=== PATIENT | male | born 1960 | race Caucasian/White ===

== ENCOUNTER → 2019-03-04 08:29 | Outpatient (BNVA) | payer MEDICARE, SELFPAY | PROVIDERS: Family Provider Family Medicine; PCP Family Medicine; Visit Provider Anesthesiology | DX: M54.9 Dorsalgia, unspecified (principal); M54.2 Cervicalgia; F17.210 Nicotine dependence, cigarettes, uncomplicated; Z79.891 Long term (current) use of opiate analgesic | CPT/HCPCS: 99214 ==

== ENCOUNTER → 2019-04-23 13:16 | Outpatient (BNVA) | payer MEDICARE, SELFPAY | PROVIDERS: Family Provider Family Medicine; PCP Family Medicine; Visit Provider Anesthesiology | DX: M54.2 Cervicalgia (principal); M54.9 Dorsalgia, unspecified; M54.16 Radiculopathy, lumbar region; S68.119A Complete traumatic metacarpophalangeal amputation of unspecified finger, initial encounter; X58.XXXA Exposure to other specified factors, initial encounter; Z72.0 Tobacco use; Z79.891 Long term (current) use of opiate analgesic | CPT/HCPCS: 99214 ==

== ENCOUNTER → 2019-09-02 10:12 | Outpatient (BNVA) | payer MEDICARE, SELFPAY | PROVIDERS: Family Provider Family Medicine; PCP Family Medicine; Visit Provider Nurse Practitioner | DX: M54.42 Lumbago with sciatica, left side (principal); M54.41 Lumbago with sciatica, right side; M54.9 Dorsalgia, unspecified; M54.2 Cervicalgia; F17.210 Nicotine dependence, cigarettes, uncomplicated; Z79.891 Long term (current) use of opiate analgesic; Z71.6 Tobacco abuse counseling | CPT/HCPCS: 99213; 99214 ==

== ENCOUNTER → 2019-10-29 11:02 | Outpatient (BNVA) | payer MEDICARE, SELFPAY | PROVIDERS: Family Provider Family Medicine; PCP Family Medicine; Visit Provider Anesthesiology | DX: M54.16 Radiculopathy, lumbar region (principal); M54.9 Dorsalgia, unspecified; M54.2 Cervicalgia; F17.210 Nicotine dependence, cigarettes, uncomplicated; Z79.891 Long term (current) use of opiate analgesic | CPT/HCPCS: 99214 ==

== ENCOUNTER → 2019-12-07 15:21 | Outpatient (BNVA) | payer MEDICARE, SELFPAY | PROVIDERS: Family Provider Family Medicine; PCP Family Medicine; Visit Provider Nurse Practitioner Family | DX: R30.0 Dysuria (principal); N30.00 Acute cystitis without hematuria | CPT/HCPCS: 80053; 81000; 87077; 87086; 87184 ==

== ENCOUNTER → 2019-12-31 09:45 | Outpatient (BNVA) | payer MEDICARE, SELFPAY | PROVIDERS: Family Provider Family Medicine; PCP Family Medicine; Visit Provider Anesthesiology | DX: M54.2 Cervicalgia (principal); M54.16 Radiculopathy, lumbar region; M54.9 Dorsalgia, unspecified; F17.210 Nicotine dependence, cigarettes, uncomplicated; Z79.891 Long term (current) use of opiate analgesic | CPT/HCPCS: 99213; 99214 ==

== ENCOUNTER → 2020-01-16 16:25 | Outpatient (BNVA) | payer MEDICARE, SELFPAY | PROVIDERS: Family Provider Family Medicine; PCP Family Medicine; Visit Provider Nurse Practitioner Family | DX: R30.0 Dysuria (principal); M54.9 Dorsalgia, unspecified; R39.9 Unspecified symptoms and signs involving the genitourinary system | CPT/HCPCS: 81000 ==

== ENCOUNTER → 2020-02-27 10:05 | Outpatient (BNVA) | payer MEDICARE, SELFPAY | PROVIDERS: Family Provider Family Medicine; PCP Family Medicine; Visit Provider Nurse Practitioner | DX: M54.16 Radiculopathy, lumbar region (principal); M54.9 Dorsalgia, unspecified; M54.2 Cervicalgia; F17.210 Nicotine dependence, cigarettes, uncomplicated; Z79.891 Long term (current) use of opiate analgesic; Z71.6 Tobacco abuse counseling | CPT/HCPCS: 99214 ==

== ENCOUNTER → 2020-05-04 09:01 | Outpatient (BNVA) | payer MEDICARE, SELFPAY | PROVIDERS: Family Provider Family Medicine; PCP Family Medicine; Visit Provider Anesthesiology | DX: M54.2 Cervicalgia (principal); M54.9 Dorsalgia, unspecified; M54.16 Radiculopathy, lumbar region; F17.200 Nicotine dependence, unspecified, uncomplicated; Z79.891 Long term (current) use of opiate analgesic | CPT/HCPCS: 99213 ==

== ENCOUNTER → 2020-07-06 09:50 | Outpatient (BNVA) | payer MEDICARE, SELFPAY | PROVIDERS: Family Provider Family Medicine; PCP Family Medicine; Referring Provider Family Medicine; Visit Provider Nurse Practitioner Family | DX: N39.0 Urinary tract infection, site not specified (principal); N31.9 Neuromuscular dysfunction of bladder, unspecified | CPT/HCPCS: 81003; 87086 ==

== ENCOUNTER → 2020-07-07 08:53 | Outpatient (BNVA) | payer MEDICARE, SELFPAY | PROVIDERS: Family Provider Family Medicine; PCP Family Medicine; Visit Provider Anesthesiology | DX: G89.29 Other chronic pain (principal); M54.2 Cervicalgia; M54.16 Radiculopathy, lumbar region; M54.9 Dorsalgia, unspecified; F17.210 Nicotine dependence, cigarettes, uncomplicated; Z79.891 Long term (current) use of opiate analgesic | CPT/HCPCS: 99214 ==

== ENCOUNTER → 2020-08-18 09:02 | Outpatient (BNVA) | payer MEDICARE, SELFPAY | PROVIDERS: Family Provider Family Medicine; PCP Family Medicine; Visit Provider Urology | DX: Z12.5 Encounter for screening for malignant neoplasm of prostate (principal); N39.0 Urinary tract infection, site not specified; N31.9 Neuromuscular dysfunction of bladder, unspecified; R32 Unspecified urinary incontinence | CPT/HCPCS: 81003; G0103 ==

== ENCOUNTER → 2020-08-31 08:37 | Outpatient (BNVA) | payer MEDICARE, SELFPAY | PROVIDERS: Family Provider Family Medicine; PCP Family Medicine; Visit Provider Anesthesiology | DX: M54.16 Radiculopathy, lumbar region (principal); M54.2 Cervicalgia; M54.9 Dorsalgia, unspecified; F17.210 Nicotine dependence, cigarettes, uncomplicated; Z79.891 Long term (current) use of opiate analgesic | CPT/HCPCS: 99214 ==

== ENCOUNTER 2020-09-29 10:11 | Outpatient (CLI) | payer MEDICARE, SELFPAY ==
--- NOTE | 2020-09-29 09:45 | XR_ITS ---
WS: [id number] KUB, AP view, 09/29/2020 Clinical Data: RECURRENT UTI Comparison: None. Findings: No abnormal intraabdominal masses or calcifications are seen. There is no dilatated small bowel or ev idence of obstruction. There are phleboliths in the true pelvis. The bladder is full. There is a large amount of fecal mater ial in colon gas obscuring detail over both kidneys. There is irregularity of the left lateral ilium which may be secondary to an injury or a bone graft donor site. XR/XR KUB [id number] Impression: Negative KUB.
== END 2020-09-29 10:12 | disposition home or self-care (01) ==
LOC: RAD 10:15
PROVIDERS: PCP Family Medicine; Visit Provider Urology
DX: N39.0 Urinary tract infection, site not specified (principal)
CPT/HCPCS: 74018; 81003

== ENCOUNTER → 2020-11-10 08:58 | Outpatient (BNVA) | payer MEDICARE, SELFPAY | PROVIDERS: PCP Family Medicine; Visit Provider Nurse Practitioner | DX: M54.16 Radiculopathy, lumbar region (principal); M54.2 Cervicalgia; F17.210 Nicotine dependence, cigarettes, uncomplicated; Z79.891 Long term (current) use of opiate analgesic; Z71.6 Tobacco abuse counseling | CPT/HCPCS: 99214 ==

== ENCOUNTER → 2021-01-05 10:15 | Outpatient (BNVA) | payer MEDICARE, SELFPAY | PROVIDERS: PCP Family Medicine; Visit Provider Anesthesiology | DX: M54.16 Radiculopathy, lumbar region (principal); M54.2 Cervicalgia; F17.200 Nicotine dependence, unspecified, uncomplicated; Z79.891 Long term (current) use of opiate analgesic; Z71.6 Tobacco abuse counseling | CPT/HCPCS: 99214 ==

== ENCOUNTER → 2021-02-10 17:10 | Outpatient (BNVA) | payer MEDICARE, SELFPAY | PROVIDERS: PCP Family Medicine; Visit Provider Emergency Medicine | DX: R39.9 Unspecified symptoms and signs involving the genitourinary system (principal); N39.0 Urinary tract infection, site not specified; R31.9 Hematuria, unspecified | CPT/HCPCS: 81000; 87086 ==

== ENCOUNTER → 2021-03-08 09:58 | Outpatient (BNVA) | payer MEDICARE, SELFPAY | PROVIDERS: PCP Family Medicine; Visit Provider Anesthesiology | DX: G89.29 Other chronic pain (principal); M54.16 Radiculopathy, lumbar region; M54.2 Cervicalgia; F17.200 Nicotine dependence, unspecified, uncomplicated; Z79.891 Long term (current) use of opiate analgesic | CPT/HCPCS: 99214 ==

== ENCOUNTER → 2022-04-21 13:56 | Outpatient (BNVA) | payer MEDICARE, SELFPAY | PROVIDERS: PCP Family Medicine; Visit Provider Thoracic Surgery (Cardiothoracic Vascular Surgery) | DX: T81.31XD Disruption of external operation (surgical) wound, not elsewhere classified, subsequent encounter (principal); Y83.8 Other surgical procedures as the cause of abnormal reaction of the patient, or of later complication, without mention of misadventure at the time of the procedure; I96 Gangrene, not elsewhere classified | CPT/HCPCS: 11042; 99213; A6021 ==

== ENCOUNTER → 2022-04-28 14:08 | Outpatient (BNVA) | payer MEDICARE, SELFPAY | PROVIDERS: PCP Family Medicine; Visit Provider Thoracic Surgery (Cardiothoracic Vascular Surgery) | DX: T81.31XA Disruption of external operation (surgical) wound, not elsewhere classified, initial encounter (principal); Y83.8 Other surgical procedures as the cause of abnormal reaction of the patient, or of later complication, without mention of misadventure at the time of the procedure | CPT/HCPCS: 97597 ==

== ENCOUNTER 2022-05-03 06:00 | Outpatient (RCR) | payer MEDICARE, SELFPAY | END 2022-05-19 23:59 | disposition home or self-care (01) | LOC: MPT 06:00 | PROVIDERS: Visit Provider Family Medicine | DX: S34.13 Other and unspecified injury to sacral spinal cord (principal); X58.XXXD Exposure to other specified factors, subsequent encounter | CPT/HCPCS: 97110; 97162 ==

== ENCOUNTER → 2022-05-05 15:09 | Outpatient (BNVA) | payer MEDICARE, SELFPAY | PROVIDERS: Visit Provider Nurse Practitioner Family | DX: I96 Gangrene, not elsewhere classified (principal); L89.610 Pressure ulcer of right heel, unstageable; Z09 Encounter for follow-up examination after completed treatment for conditions other than malignant neoplasm | CPT/HCPCS: 99212 ==

== ENCOUNTER → 2022-05-12 16:46 | Outpatient (BNVA) | payer MEDICARE, SELFPAY | PROVIDERS: Visit Provider Nurse Practitioner Family | DX: Z09 Encounter for follow-up examination after completed treatment for conditions other than malignant neoplasm (principal) | CPT/HCPCS: 99212 ==

== ENCOUNTER 2022-05-18 06:00 | Outpatient (RCR) | payer MEDICARE, SELFPAY | END 2022-05-19 23:59 | disposition home or self-care (01) | LOC: SOT 06:00 | PROVIDERS: Visit Provider Family Medicine | DX: S34.13 Other and unspecified injury to sacral spinal cord (principal); X58.XXXS Exposure to other specified factors, sequela | CPT/HCPCS: 97167; 97530 ==

== ENCOUNTER 2022-05-20 06:00 | Outpatient (RCR) | payer MEDICARE, SELFPAY | END 2022-06-18 23:59 | disposition home or self-care (01) | LOC: MPT 06:00 | PROVIDERS: Visit Provider Family Medicine | DX: M62.81 Muscle weakness (generalized) (principal) | CPT/HCPCS: 97110; 97530 ==

== ENCOUNTER 2022-06-19 06:00 | Outpatient (RCR) | payer MEDICARE, SELFPAY | END 2022-07-19 23:59 | disposition home or self-care (01) | LOC: MPT 06:00 | PROVIDERS: Visit Provider Family Medicine | DX: R53.1 Weakness (principal) | CPT/HCPCS: 97110; 97530 ==

== ENCOUNTER 2022-07-20 06:00 | Outpatient (RCR) | payer MEDICARE, SELFPAY | END 2022-08-18 23:59 | disposition home or self-care (01) | LOC: MPT 06:00 | PROVIDERS: Visit Provider Family Medicine | DX: M62.81 Muscle weakness (generalized) (principal) | CPT/HCPCS: 97110; 97530 ==

== ENCOUNTER 2022-08-28 06:00 | Outpatient (RCR) | payer MEDICARE, SELFPAY | END 2022-09-18 23:59 | disposition home or self-care (01) | LOC: MOT 06:00 | PROVIDERS: Visit Provider Family Medicine | DX: S34.13 Other and unspecified injury to sacral spinal cord (principal); X58.XXXS Exposure to other specified factors, sequela | CPT/HCPCS: 97110; 97112; 97140; 97166 ==

== ENCOUNTER 2022-09-01 10:31 | Outpatient (RCR) | payer MEDICARE, SELFPAY | END 2022-09-18 23:59 | disposition home or self-care (01) | LOC: MPT 10:31 | PROVIDERS: Visit Provider Family Medicine | DX: M62.81 Muscle weakness (generalized) (principal) | CPT/HCPCS: 97110; 97530 ==

== ENCOUNTER 2022-09-19 06:00 | Outpatient (RCR) | payer MEDICARE, SELFPAY | END 2022-10-19 23:59 | disposition home or self-care (01) | LOC: MPT 06:00 | PROVIDERS: Visit Provider Family Medicine | DX: M62.81 Muscle weakness (generalized) (principal) | CPT/HCPCS: 97110; 97530 ==

== ENCOUNTER 2022-09-19 06:00 | Outpatient (RCR) | payer MEDICARE, SELFPAY | END 2022-10-19 23:59 | disposition home or self-care (01) | LOC: MOT 06:00 | PROVIDERS: Visit Provider Family Medicine | DX: S34.13 Other and unspecified injury to sacral spinal cord (principal); X58.XXXS Exposure to other specified factors, sequela | CPT/HCPCS: 97110; 97112; 97140 ==

== ENCOUNTER 2022-10-20 06:00 | Outpatient (RCR) | payer MEDICARE, SELFPAY | END 2022-11-18 23:59 | disposition home or self-care (01) | LOC: MOT 06:00 | PROVIDERS: Visit Provider Family Medicine | DX: S34.13 Other and unspecified injury to sacral spinal cord (principal); X58.XXXD Exposure to other specified factors, subsequent encounter | CPT/HCPCS: 97110; 97112; 97140 ==

== ENCOUNTER 2022-10-20 06:00 | Outpatient (RCR) | payer MEDICARE, SELFPAY | END 2022-11-18 23:59 | disposition home or self-care (01) | LOC: MPT 06:00 | PROVIDERS: Visit Provider Family Medicine | DX: M62.81 Muscle weakness (generalized) (principal) | CPT/HCPCS: 97110 ==

== ENCOUNTER 2022-11-19 06:00 | Outpatient (RCR) | payer MEDICARE, SELFPAY | END 2022-12-19 23:59 | disposition home or self-care (01) | LOC: MOT 06:00 | PROVIDERS: Visit Provider Family Medicine | DX: S34.13 Other and unspecified injury to sacral spinal cord (principal); V89.2XXS Person injured in unspecified motor-vehicle accident, traffic, sequela | CPT/HCPCS: 97110; 97112 ==

== ENCOUNTER 2022-11-19 06:00 | Outpatient (RCR) | payer MEDICARE, SELFPAY | END 2022-12-19 23:59 | disposition home or self-care (01) | LOC: MPT 06:00 | PROVIDERS: Visit Provider Family Medicine | DX: S34.13 Other and unspecified injury to sacral spinal cord (principal); X58.XXXD Exposure to other specified factors, subsequent encounter | CPT/HCPCS: 97110 ==

== ENCOUNTER 2022-12-19 12:31 | Emergency (ER) | payer MEDICARE, SELFPAY ==
[2022-12-19 12:56] VITALS: BP 131/80; PULSE 73; RESP 18; TEMP 36.8; O2SAT 94
--- NOTE | 2022-12-19 13:34 | CT_ITS ---
WS: [id number] CT HEAD TECHNIQUE: Noncontrast CT of the head obtained from the skullbase to the vertex. CLINICAL INFORMATION: loss of vision COMPARISON: CT 2018 DLP: 1119.[address] scans at [facility] use at least one of these dose optimization techniques: automated e xposure control; mA and/or kV adjustment per patient size (includes targeted exams where dose is matc hed to clinical indication); or iterative reconstruction. FINDINGS: No evidence of intracranial hemorrhage or mass effect. Ventricular system and basal cisterns are mayer nt. Mild small vessel changes with mild parenchymal volume loss. No extra-axial fluid collections. No evidence of mass or mass effect. Intracranial vascular calcification. Tiny chronic lacunar infarct L EFT thalamus. Paranasal sinuses and mastoid air cells are well aerated. .Normal visualized soft tissues. IMPRESSION: 1. No evidence of intracranial hemorrhage or mass effect. 2. No acute intracranial findings.
[2022-12-19 13:45] LABS: Basophils # 0.1 10^3/uL (0.0-0.1); Basophils % 0.8 %; Eosinophils # 0.4 10^3/uL (0.0-0.8); Eosinophils % 5.6 %; Hematocrit 45.8 % (37-53); Lymphocytes # 1.5 10^3/uL (0.8-4.8); Lymphocytes % 20.2 %; Mean Corpuscular HGB Conc 31.2 g/dL (30-55); Mean Corpuscular Hemoglobin 27.7 pg (27-33); Mean Corpuscular Volume 88.6 fl (82-101); Mean Platelet Volume 10.9 fL (7.4-10.4); Monocytes # 0.5 10^3/uL (0.2-0.9); Monocytes % 7.2 %; Neutrophils # 4.75 10^3/uL (1.8-7.7); Neutrophils % 64.6 %; Nucleated Red Blood Cells % 0 %; Platelet Count 210 10^3/cmm (157-399); Red Blood Count 5.17 10^6/uL (3.85-5.65); Red Cell Distribution Width 13.5 % (12.1-15.1); White Blood Count 7.36 10^3/uL (3.29-11.43)
[2022-12-19 13:56] LABS: Erythrocyte Sedimentation Rate 30 mm/hr (0-10)
[2022-12-19 14:15] LABS: Alanine Aminotransferase 11 U/L (0-41); Albumin Level 3.5 g/dL (3.5-5.2); Alkaline Phosphatase 79 U/L (40-130); Anion Gap 11.4 (5-19); Aspartate Amino Transferase 11 U/L (0-40); Blood Urea Nitrogen 12 mg/dL (8-23); Calcium 9.5 mg/dL (8.5-10.5); Carbon Dioxide 29 mmol/L (22-29); Chloride 105 mmol/L (98-107); Globulin 3.1 g/dL (1.3-4.6); Glomerular Filtration Rate 75.5 mL/min (90-130); Glucose 99 mg/dL (65-115); Osmolality Calculated 292 mOsm/kg (285-295); Potassium 4.4 mmol/L (3.5-5.1); Sodium 141 mmol/L (136-145); Total Bilirubin 0.2 mg/dL (0.15-1.2); Total Protein 6.6 g/dL (6.6-8.7)
--- NOTE | 2022-12-19 15:14 | ED_ITS ---
HPI - General Adult General: Chief complaint: General Medical Stated complaint: vision problems Time Seen by Provider: 12/19/22 13:33 Source: patient Mode of arrival: ambulatory History of Present Illness: 59-year-old male presents emergency room complaining of bilateral vision loss. He states his vision has been foggy and difficult he has had it intermittently for several months for the last 3 days has been more severe to the point where is difficult time walking or managing daily activities of living. He has not had any fever sweats chills no trauma to the eyes no foreign body sensation no redness erythema or swelling to the eyes that they have noticed. No direct trauma or blow has not had an associated headache nausea vomiting dizziness no seizures. In September he seen an internal investigator had a dilated eye exam and his eyes were relatively fine after that but he intermittently would have difficulty with focusing. Last 3 days it has been much more intense and persistent Onset (ago): hour(s) Location: head Relieving factors: none Exacerbating factors: none Associated symptoms: Deny chest pain, confusion, cough, diaphoresis, decreased appetite, dyspnea, fevers/chills, headache(s), malaise, nausea, rash, palpitations, seizures, short of breath, syncope, vomiting or weakness Review of Systems Const: Denies: malaise or diaphoresis Card: Denies: chest pain, palpitations or syncope Resp: Denies: dyspnea GI: Denies: nausea or vomiting : Denies: dysuria, urinary frequency or urinary urgency Musc: Denies: neck pain or back pain Skin/Breast: Denies: rash Neuro: Denies: headache(s) or confusion PFS ED PFSH: Medical History Asthma Back Pain Cervical spine pain Encounter for long-term use of opiate analgesic Fingertip amputation High blood pressure Lumbar radiculitis Neurogenic bladder Opioid contract exists Recurrent UTI Smoker Urinary incontinence Surgical History H/O spinal fusion Family History Mother Dementia Father Cancer Other Hypertension Social History Alcohol intake: never Substance/Drug Use: never Marital status: Current occupational status: disabled Physical Exam Const: GENERAL APPEARANCE: cooperative and comfortable ORIENTATION/CONSCIOUSNESS: Yes awake, Yes oriented to person, Yes oriented to place and Yes oriented to time HENMT: COMMON NORMALS: normocephalic, atraumatic and hearing grossly normal bilaterally HEAD & SCALP: normocephalic and atraumatic Resp: COMMON NORMALS: normal respiratory effort, No retractions, No use of accessory muscles and clear to auscultation bilaterally AUSCULTATION: clear to auscultation bilaterally Cardio: COMMON NORMALS: regular rate, regular rhythm and No murmurs present (Cardio) RATE: regular rate RHYTHM: regular rhythm GI: COMMON NORMALS: Soft to palpation and No hepatosplenomegaly present AUSCULTATION: Yes normoactive bowel sounds PALPATION: Yes Soft to palpation, No Tenderness to palpation present (GI), No Guarding due to palpation present (GI) and Yes No hepatosplenomegaly present Extremity: COMMON NORMALS: normal to inspection, capillary refill normal, no clubbing, cyanosis or edema, no calf tenderness and no pedal edema Neuro: SENSORIUM/ORIENTATION: Yes oriented to person, Yes oriented to place and Yes oriented to time Skin: COMMON NORMALS: no rashes or lesions noted GENERAL SKIN EXAM: no rashes or lesions noted Course Vital Signs: Vital signs: Vital Signs Temperature 98.2 F 12/19/22 12:56 Pulse Rate 73 12/19/22 12:56 Respiratory Rate 18 12/19/22 12:56 Blood Pressure 131/80 12/19/22 12:56 Pulse Oximetry 94 12/19/22 12:56 Oxygen Delivery Me thod Room Air 12/19/22 12:56 MDM - General Adult Medical Decision Making Vision problem does persist for 72 hours. At this point no inflammatory process CT of the head is negative discussed with on-call ops myology there is no acute interventions at this point they will see him for single morning in their office. Discussed with the patient gave him contact information they are to call the ophthalmology office to make arrangements for a evaluation tomorrow. Medical Records I reviewed the patient's medical records. Lab Data I reviewed the patient's lab results. 12/19/22 13:40 12/19/22 13:40 Laboratory Results WBC 7.36 10^3/uL (3.29-11.43) 12/19/22 13:40 RBC 5.17 10^6/uL (3.85-5.65) 12/19/22 13:40 Hgb 14.30 g/dL (11.27-16.99) 12/19/22 13:40 Hct 45.8 % (37-53) 12/19/22 13:40 MCV 88.6 fl (82-101) 12/19/22 13:40 MCH 27.7 pg (27-33) 12/19/22 13:40 MCHC 31.2 g/dL (30-55) 12/19/22 13:40 RDW 13.5 % (12.1-15.1) 12/19/22 13:40 Plt Count 210 10^3/cmm (157-399) 12/19/22 13:40 MPV 10.9 fL (7.4-10.4) H 12/19/22 13:40 Neut % (Auto) 64.6 % 12/19/22 13:40 Lymph % (Auto) 20.2 % 12/19/22 13:40 [place] % (Auto) 7.2 % 12/19/22 13:40 Eos % (Auto) 5.6 % 12/19/22 13:40 Baso % (Auto) 0.8 % 12/19/22 13:40 Neut # (Auto) 4.75 10^3/uL (1.8-7.7) 12/19/22 13:40 Lymph # (Auto) 1.5 10^3/uL (0.8-4.8) 12/19/22 13:40 [place] # (Auto) 0.5 10^3/uL (0.2-0.9) 12/19/22 13:40 Eos # (Auto) 0.4 10^3/uL (0.0-0.8) 12/19/22 13:40 Baso # (Auto) 0.1 10^3/uL (0.0-0.1) 12/19/22 13:40 Nucleated RBC % (auto) 0 % 12/19/22 13:40 Nucleated RBCs # 0.0 /100WBC 12/19/22 13:40 ESR 30 mm/hr (0-10) H 12/19/22 13:40 Sodium 141 mmol/L (136-145) 12/19/22 13:40 Potassium 4.4 mmol/L (3.5-5.1) 12/19/22 13:40 Chloride 105 mmol/L (98-107) 12/19/22 13:40 Carbon Dioxide 29 mmol/L (22-29) 12/19/22 13:40 Anion Gap 11.4 (5-19) 12/19/22 13:40 BUN 12 mg/dL (8-23) 12/19/22 13:40 Creatinine 1.0 mg/dL (0.7-1.2) 12/19/22 13:40 GFR Calculation 75.5 mL/min (90-130) L 12/19/22 13:40 Glucose 99 mg/dL (65-115) 12/19/22 13:40 Calculated Osmolality 292 mOsm/kg (285-295) 12/19/22 13:40 Calcium 9.5 mg/dL (8.5-10.5) 12/19/22 13:40 Total Bilirubin 0.2 mg/dL (0.15-1.2) 12/19/22 13:40 AST 11 U/L (0-40) 12/19/22 13:40 ALT 11 U/L (0-41) 12/19/22 13:40 Alkaline Phosphatase 79 U/L (40-130) 12/19/22 13:40 Total Protein 6.6 g/dL (6.6-8.7) 12/19/22 13:40 Albumin 3.5 g/dL (3.5-5.2) 12/19/22 13:40 Globulin 3.1 g/dL (1.3-4.6) 12/19/22 13:40 All radiology interpretation(s) finalized by discharge Discharge Plan Discharge Patient Disposition: Home Clinical Impression: Visual loss Condition: Stable Prescriptions: No Action methenamine hippurate 1 gram tablet 1 g PO BID tadalafil [Cialis] 2.5 mg tablet 2.5 mg PO ONCE atorvastatin 20 mg tablet 20 mg PO DAILY omeprazole 20 mg capsule,delayed release(DR/EC) 20 mg PO DAILY PRN ciprofloxacin HCl 500 mg tablet 500 mg PO BID 10 Days Qty: 20 0RF oxybutynin chloride 15 mg tablet extended release 24 hr See Rx Instructions .ROUTE .COMPLEX Qty: 30 6RF Dose Instruction: TAKE ONE TABLET BY MOUTH ONCE DAILY Rx Instructions: TAKE ONE TABLET BY MOUTH ONCE DAILY oxycodone 10 mg tablet 10 mg PO .5 times a day PRN (Reason: pain) 30 Days Qty: 150 0RF Rx Instructions: fill on or after 04/09/21 oxycodone 10 mg tablet 10 mg PO .5 times a day PRN (Reason: pain) 30 Days Qty: 150 0RF Rx Instructions: fill on or after 03/10/21 solifenacin 10 mg tablet See Rx Instructions .ROUTE .COMPLEX Qty: 30 12RF Dose Instruction: TAKE ONE TABLET BY MOUTH ONCE DAILY Rx Instructions: TAKE ONE TABLET BY MOUTH ONCE DAILY Discharge Orders: Discharge ED (Routine); Ordered 12/19/22 Ordered By: Rubén Cohn Referrals: Hany Tapia DO [Primary Care Provider] - Compa Díaz MD [Physician] - Discharge Diet: Usual diet Discharge Activity: Resume usual activity Patient Instructions: Opioid Safety, Pain Management Activity Restrictions/Additional Instructions: Thank you for choosing [facility] for your healthcare needs today. Please realize this is an emergency room and that we are providing you with a medical screening exam and this may not be complete and all inclusive of all the testing and or work up that you may need to determine your ailment or severity of your illness. It is very important that you follow up as instructed or that you return to the Emergency Department should you have concerns or if your condition changes or worsens in any way. Discussed your case with the adventure challenge instructor on-call at this point given the history and the evaluation done in the emergency room no emergent condition is suspected. Recommend that you follow-up with ophthalmology in their office tomorrow. Coding Level of Care Code ED Cell Manager for Virgilio Trejo
== END 2022-12-19 16:38 | disposition home or self-care (01) ==
PROVIDERS: Emergency Provider Family Medicine; PCP Family Medicine
DX: H54.7 Unspecified visual loss (principal)
CPT/HCPCS: 36415; 70450; 80053; 85025; 85651; 99284

== ENCOUNTER 2023-04-06 11:42 | Inpatient (IN) | payer MEDICARE, SELFPAY ==
[2023-04-06 12:15] VITALS: BP 146/83; PULSE 82; RESP 16; TEMP 36.6; O2SAT 97; BMI 33.6
--- NOTE | 2023-04-06 13:00 | W.ED.MALEGU ---
HPI - Male Genitourinary General: Chief complaint: Urogenital-Male Stated complaint: weakness Time Seen by Provider: 04/06/23 12:37 Source: patient and family Mode of arrival: wheelchair Limitations: no limitations History of Present Illness: Patient is a 62-year-old male who presents to the ED today with several complaints. Patient states earlier this month he was diagnosed with a Pseudomonas aeruginosa UTI. He has a chronic suprapubic indwelling catheter due to a neurogenic bladder. Patient states he has completed a round of Levaquin as well as a round of Ciprofloxacin for this. He states he was recently called after his culture and sensitivity report showed the UTI was resistant to these medications. He was told to come to the ED for IV antibiotics. Patient states he was at [facility] yesterday. He states they replaced his suprapubic catheter. He states he normally wears a 22 [place] but they placed a 16 [place]. He states since then he has had urethral urine drainage. Patient has a urologist in [place]. He is complaining of chills, back pain, headache (states this is fairly chronic given a previous extensive neck injury). Culture and sensitivity report was faxed over by patient's PCP Dr. Tapia at [facility]. Final culture results grew Pseudomonas aeruginosa. Sensitivity report shows sensitivities to cefepime, amikacin, ceftazidime, gentamycin, and zosyn. It is resistant to levofloxacin, ciprofloxacin. Indeterminate for imipenem and meropenem. Complaint: other (UTI, leaking catheter ) Onset (ago): day(s) Relieving factors: none Exacerbating factors: none Associated symptoms: Deny nausea or vomiting Related Data: Sexually active: No Review of Systems Const: Reports: chills and night sweats; Denies: fever(s), body aches, fatigue or malaise Eyes: Denies: change in vision, blurry vision, photophobia or floaters Card: Denies: chest pain Resp: Denies: dyspnea GI: Denies: abdominal pain, nausea, vomiting or diarrhea : Reports: other (indwelling suprapubic cath due to neurogenic bladder) Musc: Reports: neck pain (chronic) and back pain; Denies: extremity pain, extremity swelling, joint pain or joint swelling Skin/Breast: Denies: rash Neuro: Reports: headache(s) (chronic from previous neck injury); Denies: numbness in extremities, weakness in extremities or sensory changes PFSH ED PFSH: Medical History Urinary incontinence Recurrent UTI Neurogenic bladder High blood pressure Asthma Smoker Opioid contract exists Encounter for long-term use of opiate analgesic Lumbar radiculitis Fingertip amputation Back Pain Cervical spine pain Surgical History H/O spinal fusion Family History Mother Dementia Father Cancer Other Hypertension Social History Alcohol intake: never Substance/Drug Use: never Marital status: Current occupational status: disabled Physical Exam Const: COMMON NORMALS: no acute distress, patient oriented x3, no limitations, alert and well nourished GENERAL APPEARANCE: cooperative ORIENTATION/CONSCIOUSNESS: Yes awake, Yes oriented to person, Yes oriented to place and Yes oriented to time HENMT: COMMON NORMALS: normocephalic and atraumatic HEAD & SCALP: normal to inspection, normocephalic and atraumatic Eye: GENERAL EYE: appearance normal, both eyes and all related structures and normal light reflex DIRECT OPHTHALMOSCOPY: Yes normal light reflex Resp: COMMON NORMALS: normal respiratory effort and clear to auscultation bilaterally AUSCULTATION: clear to auscultation bilaterally Cardio: COMMON NORMALS: regular rate and regular rhythm RATE: regular rate RHYTHM: regular rhythm GI: COMMON NORMALS: Normal to inspection, nondistended, normoactive bowel sounds present, Soft to palpation and non-tender PALPATION: Yes Soft to palpation OTHER: draining suprapubic catheter : BLADDER/KIDNEY EXAM: Yes CVA tenderness (mild) bilateral Back/Pelvis: GENERAL BACK: Yes CVA tenderness (mild) LUMBAR SPINE/LOWER BACK: Yes lumbar spinal tenderness Extremity: COMMON NORMALS: normal to inspection GENERAL: Yes normal exam except as noted Neuro: SUMEET COMA SCALE: document GCS findings [place] coma scale eye opening: Spontaneous [place] coma scale verbal response: Orientated [place] coma scale motor response: Obey commands [place] coma scale total score: 15 COMMON NORMALS: patient oriented x3 SENSORIUM/ORIENTATION: Yes alert, Yes oriented to person, Yes oriented to place and Yes oriented to time Course Consultations: Consultation #1: Dr. Granger-will come evaluate patient in ED/accepts admission Vital Signs: Vital signs: Vital Signs Temperature 97.8 F 04/06/23 12:15 Pulse Rate 82 04/06/23 12:15 Respiratory Rate 16 04/06/23 12:15 Blood Pressure 146/83 04/06/23 12:15 Pulse Oximetry 97 04/06/23 12:15 Oxygen Delivery Me thod Room Air 04/06/23 12:15 MDM - Male Medical Decision Making Patient here for an antibiotic resistant Pseudomonas UTI. Culture and sensitivity report was faxed over by his primary care provider's office. It is resistant to fluoroquinolones. Indeterminate for imipenem/meropenem. I have contacted cleaner housekeeping as well as case management to try to get the patient set up with antibiotic infusions through the outpatient surgery center as well as the infusion center however they are saying these cannot be completed. I have spoken to hospitalist Dr. Granger and we will admit. Dr. Esparza aware of patient and agrees with care plan. Lab Data 04/06/23 13:34 04/06/23 13:34 Laboratory Results WBC 8.67 10^3/uL (3.29-11.43) 04/06/23 13:34 RBC 5.64 10^6/uL (3.85-5.65) 04/06/23 13:34 Hgb 15.10 g/dL (11.27-16.99) 04/06/23 13:34 Hct 47.8 % (37-53) 04/06/23 13:34 MCV 84.8 fl (82-101) 04/06/23 13:34 MCH 26.8 pg (27-33) L 04/06/23 13:34 MCHC 31.6 g/dL (30-55) 04/06/23 13:34 RDW 13.2 % (12.1-15.1) 04/06/23 13:34 Plt Count 211 10^3/cmm (157-399) 04/06/23 13:34 MPV 11.4 fL (7.4-10.4) H 04/06/23 13:34 Neut % (Auto) 71.0 % 04/06/23 13:34 Lymph % (Auto) 17.8 % 04/06/23 13:34 [place] % (Auto) 6.3 % 04/06/23 13:34 Eos % (Auto) 3.6 % 04/06/23 13:34 Baso % (Auto) 0.8 % 04/06/23 13:34 Neut # (Auto) 6.16 10^3/uL (1.8-7.7) 04/06/23 13:34 Lymph # (Auto) 1.5 10^3/uL (0.8-4.8) 04/06/23 13:34 [place] # (Auto) 0.6 10^3/uL (0.2-0.9) 04/06/23 13:34 Eos # (Auto) 0.3 10^3/uL (0.0-0.8) 04/06/23 13:34 Baso # (Auto) 0.1 10^3/uL (0.0-0.1) 04/06/23 13:34 Nucleated RBC % (auto) 0 % 04/06/23 13:34 Nucleated RBCs # 0.0 /100WBC 04/06/23 13:34 Sodium 136 mmol/L (136-145) 04/06/23 13:34 Potassium 4.0 mmol/L (3.5-5.1) 04/06/23 13:34 Chloride 98 mmol/L (98-107) 04/06/23 13:34 Carbon Dioxide 27 mmol/L (22-29) 04/06/23 13:34 Anion Gap 15.0 (5-19) 04/06/23 13:34 BUN 14 mg/dL (8-23) 04/06/23 13:34 Creatinine 1.2 mg/dL (0.7-1.2) 04/06/23 13:34 GFR Calculation 61.1 mL/min (90-130) L 04/06/23 13:34 Glucose 89 mg/dL (65-115) 04/06/23 13:34 Calculated Osmolality 282 mOsm/kg (285-295) L 04/06/23 13:34 Lactic Acid 2.0 mmol/L (0.5-2.2) 04/06/23 13:34 Calcium 8.9 mg/dL (8.5-10.5) 04/06/23 13:34 Total Bilirubin 0.4 mg/dL (0.15-1.2) 04/06/23 13:34 AST 12 U/L (0-40) 04/06/23 13:34 ALT 11 U/L (0-41) 04/06/23 13:34 Alkaline Phosphatase 95 U/L (40-130) 04/06/23 13:34 Total Protein 7.1 g/dL (6.6-8.7) 04/06/23 13:34 Albumin 4.0 g/dL (3.5-5.2) 04/06/23 13:34 Globulin 3.1 g/dL (1.3-4.6) 04/06/23 13:34 Urine Color Colorless (Yellow) 04/06/23 14:33 Urine Appearance Clear (CLEAR) 04/06/23 14:33 Urine pH 5 (5-7) 04/06/23 14:33 Ur Specific [place] 1.005 (1.005-1.030) 04/06/23 14:33 Urine Protein Neg (Negative) 04/06/23 14:33 Urine Glucose (UA) Norm (Normal) 04/06/23 14:33 Urine Ketones Negative (Negative) 04/06/23 14:33 Urine Blood 2+ (Negative) H 04/06/23 14:33 Urine Nitrate Negative (Negative) 04/06/23 14:33 Urine Bilirubin Neg (Negative) 04/06/23 14:33 Urine Urobilinogen Norm mg/dL (Negative) 04/06/23 14:33 Ur Leukocyte Esterase 1+ (Negative) H 04/06/23 14:33 Urine RBC 0-4 /hpf (0-2) H 04/06/23 14:33 Urine WBC 0-4 /hpf (0-5) H 04/06/23 14:33 Ur Squamous Epith Cells 0-4 /hpf (0-5) H 04/06/23 14:33 Amorphous Sediment Not Reportable 04/06/23 14:33 Urine Bacteria Trace /hpf (NONE) 04/06/23 14:33 No radiology studies performed this visit Discharge Plan Discharge Patient Disposition: Admitted As Inpatient Clinical Impression: Pseudomonas urinary tract infection Condition: Stable Prescriptions: No Action omeprazole 20 mg capsule,delayed release(DR/EC) 20 mg PO BID ciprofloxacin HCl 500 mg tablet 500 mg PO BID 10 Days Qty: 20 0RF Rx Instructions: FOR 10 DAYS (RX FILLED 03/27/23) furosemide 40 mg tablet 40 mg PO QAM fluconazole 100 mg tablet 100 mg PO DAILY Rx Instructions: FOR 3 DAYS (RX FILLED 04/05/23) tizanidine 4 mg tablet 4 mg PO QPM PRN (Reason: Muscle Spasm) cephalexin 500 mg capsule 500 mg PO BID Rx Instructions: FOR 30 DAYS (RX FILLED 03/09/23) testosterone cypionate 200 mg/mL oil 200 mg IM Q30D Rx Instructions: DUE 04/05/23 tadalafil 20 mg tablet 20 mg PO QPM oxycodone 10 mg tablet 5 - 10 mg PO Q8H MDD 2.5 TABS PRN (Reason: Pain) Enemeez 283 mg/5 mL enema See Rx Instructions .ROUTE .COMPLEX Rx Instructions: USE ONE PER RECTUM DAILY NEEDED FOR BOWEL MANAGEMENT PROGRAM oxybutynin chloride 15 mg tablet extended release 24hr 15 mg PO QPM solifenacin 10 mg tablet 10 mg PO QAM Excedrin Migraine 250-250-65 mg Tablet 2 tab PO Q6H PRN (Reason: Migraine Headache) Primatene Mist 0.125 mg/actuation Hfa Aerosol Inhaler 1 puff INHALATION BID Referrals: Hany Tapia DO [Primary Care Provider] - Patient Instructions: Opioid Safety, Pain Management Coding Level of Care Code ED Superintendent Circus for Virgilio Trejo
[2023-04-06] MEDS: cefepime 2,000 MG in sodium chloride 0.9% (plus) 50 ML 100 MG IV (13:36)
[2023-04-06 13:48] LABS: Basophils # 0.1 10^3/uL (0.0-0.1); Basophils % 0.8 %; Eosinophils # 0.3 10^3/uL (0.0-0.8); Eosinophils % 3.6 %; Hematocrit 47.8 % (37-53); Lymphocytes # 1.5 10^3/uL (0.8-4.8); Lymphocytes % 17.8 %; Mean Corpuscular HGB Conc 31.6 g/dL (30-55); Mean Corpuscular Hemoglobin 26.8 pg (27-33); Mean Corpuscular Volume 84.8 fl (82-101); Mean Platelet Volume 11.4 fL (7.4-10.4); Monocytes # 0.6 10^3/uL (0.2-0.9); Monocytes % 6.3 %; Neutrophils # 6.16 10^3/uL (1.8-7.7); Nucleated Red Blood Cells % 0 %; Platelet Count 211 10^3/cmm (157-399); Red Blood Count 5.64 10^6/uL (3.85-5.65); Red Cell Distribution Width 13.2 % (12.1-15.1); White Blood Count 8.67 10^3/uL (3.29-11.43)
--- NOTE | 2023-04-06 14:03 | PC.PHAR ---
PT STATES HE TAKES CARE OF HIS OWN MEDICATIONS-PT STATES HE TAKES OXYBUTYNIN ER 15MG QPM EXT SHOWS LAST FILLED 5MG PLAIN 1 TAB TID PRN-
[2023-04-06 14:14] LABS: Alanine Aminotransferase 11 U/L (0-41); Alkaline Phosphatase 95 U/L (40-130); Aspartate Amino Transferase 12 U/L (0-40); Blood Urea Nitrogen 14 mg/dL (8-23); Calcium 8.9 mg/dL (8.5-10.5); Carbon Dioxide 27 mmol/L (22-29); Chloride 98 mmol/L (98-107); Creatinine Clr Calc Pharmacy 86.3188; Globulin 3.1 g/dL (1.3-4.6); Glomerular Filtration Rate 61.1 mL/min (90-130); Glucose 89 mg/dL (65-115); Osmolality Calculated 282 mOsm/kg (285-295); Sodium 136 mmol/L (136-145); Total Bilirubin 0.4 mg/dL (0.15-1.2); Total Protein 7.1 g/dL (6.6-8.7)
[2023-04-06 15:42] LABS: Add Urine Culture? No; Add Urine Microscopic? YES; Bacteria Urine TRACE /hpf; Bilirubin Urine Neg (Negative); Blood Urine 2+ (Negative); Glucose Urine UA Norm (Normal); Ketones Urine Negative (Negative); Leukocyte Esterase Urine 1+ (Negative); Nitrate Urine Negative (Negative); Protein Urine Neg (Negative); RBC Urine 0-4 /hpf (0-2); Specific Gravity, Urine 1.005 (1.005-1.030); Squamous Epithelial Cell Urine 0-4 /hpf (0-5); Urine Appearance Clear (CLEAR); Urine Color Colorless (Yellow); Urobilinogen Urine Norm (Negative); WBC Urine 0-4 /hpf (0-5); pH Urine 5 (5-7)
--- NOTE | 2023-04-06 16:27 | CTR_ITS ---
PROCEDURE INFORMATION: Exam: CT Abdomen And Pelvis Without Contrast Exam date and time: 04/06/2023 4:58 PM Age: 62 years old Clinical indication: Abdominal pain; Flank; Right; Additional info: Right flank pain TECHNIQUE: Imaging protocol: Computed tomography of the abdomen and pelvis without contrast. Sagittal and coronal reformatted images were created and reviewed. Radiation optimization: All CT scans at this facility use at least one of these dose optimization techniques: automated exposure control; mA and/or kV adjustment per patient size (includes targeted exams where dose is matched to clinical indication); or iterative reconstruction. COMPARISON: CT kidney stone [id number] 04/12/2019 1:30 PM RADIATION DOSE METRICS: Total DLP (mGy-cm): 1230.99 FINDINGS: Limitations: Evaluation of solid organs and vasculature is limited without intravenous contrast. This is standard protocol for evaluation of possible urolithiasis. Tubes, catheters and devices: The bladder is decompressed by a suprapubic catheter. There is inflammation around the bladder as well as along the course of the suprapubic catheter anterior abdomen and overlying soft tissues. A possible infectious process can not be ruled out. Lungs: Visualized lungs are clear. Pleural spaces: No pleural effusion. Heart: Visualized portions of the heart are unremarkable. Liver: The liver is unremarkable. Gallbladder and bile ducts: The gallbladder is unremarkable. No biliary ductal dilatation. Pancreas: Stable mild atrophy of the pancreatic parenchyma. No pancreatic ductal dilatation. Spleen: Stable calcifications along the surface of the spleen, this may be due to remote trauma or old infarcts. Adrenal glands: The right and left adrenal glands are unremarkable. Kidneys and ureters: The right kidney is unremarkable. Scarring along the lateral left renal surface suggesting sequela of prior trauma or infection. No acute inflammation around the kidneys. The right and left ureters are unremarkable. No hydroureteronephrosis. No calcified urolithiasis. Stomach and bowel: Scattered diverticula in the colon. No evidence for diverticulitis. No acute abnormality in the small bowel. The stomach is unremarkable for the degree of distension. Appendix: The appendix is visualized and is unremarkable. No findings to suggest acute appendicitis. Intraperitoneal space: No free intraperitoneal air. No ascites. No loculated fluid collections to suggest an abscess. Vasculature: Mild atherosclerotic changes in the visualized arteries. No evidence for aortic aneurysm. Lymph nodes: No lymphadenopathy. Urinary bladder: See Tubes, catheters and devices finding. Reproductive: Unremarkable as visualized. Bones/joints: Bones are diffusely osteopenic. Degenerative changes in the spine, sacroiliac joints, and hips. Calcification of the anterior longitudinal ligament at multiple levels in the thoracic spine, possibly representing diffuse idiopathic skeletal hyperostosis (DISH). Soft tissues: No acute abnormality in the extra-abdominal soft tissues. CT/CT abdomen pelvis wo con [id number] IMPRESSION: 1. The bladder is decompressed by a suprapubic catheter. There is inflammation around the bladder as well as along the course of the suprapubic catheter anterior abdomen and overlying soft tissues. A possible infectious process can not be ruled out. Recommend clinical correlation. 2. Scattered diverticula in the colon. No evidence for diverticulitis. 3. Incidental/nonacute findings are listed in the report.
--- NOTE | 2023-04-06 16:31 | P.HP_ITS ---
Providers/Chief Complaint 2 Primary Care Provider: Hany Tapia DO Chief Complaint: weakness History of Present Illness Jonathon Benítez is a 62 year old male with a past medical history of neurogenic bladder, history of suprapubic catheter, follows up with urology in [facility], history of recurrent UTIs, who presents [facility] due to flank pain, fevers, chills, fatigue, malaise, increased urgency. Patient tells me that he has been dealing with increased urgency, chills, feeling unwell, for the last week, he saw his primary care, has been on multiple rounds of Cipro and Levaquin, without improvement, he had a urine culture drawn, he went to [facility] yesterday as the urine culture was resistant to multiple oral antibiotics, however family tells me that they were not much help and they sent him home, he continues to have chills, now having right flank pain, reporting fatigue, malaise, feeling unwell Review of Systems 2 Const: Reports: chills GI: Denies: abdominal pain : Reports: flank pain Medications/Allergies Home Medications Medication Instructions Recorded Confirmed Last Taken Type omeprazole 20 mg capsule,delayed 20 mg PO BID 01/05/21 04/06/23 04/06/23 History release ciprofloxacin HCl 500 mg tablet 500 mg PO BID 10 days #20 tabs 02/10/21 04/06/23 04/06/23 Rx azjeilb-tvzlnjlxlxmel-fammhjsm 250 2 tab PO Q6H PRN Migraine Headache 04/06/23 04/06/23 04/06/23 History mg-250 mg-65 mg tablet (Excedrin Migraine) cephalexin 500 mg capsule 500 mg PO BID 04/06/23 04/06/23 04/06/23 History docusate sodium 283 mg/5 mL enema See Rx Instructions .Route .COMPLEX 04/06/23 04/06/23 Unknown History (Enemeez) epinephrine 0.125 mg/actuation 1 puff inhalation BID 04/06/23 04/06/23 Unknown History aerosol inhaler (Primatene Mist) fluconazole 100 mg tablet 100 mg PO DAILY 04/06/23 04/06/23 04/06/23 History furosemide 40 mg tablet 40 mg PO QAM 04/06/23 04/06/23 04/06/23 History oxybutynin chloride 15 mg 15 mg PO QPM 04/06/23 04/06/23 04/05/23 History tablet,extended release 24 hr oxycodone 10 mg tablet 5 - 10 mg PO Q8H PRN Pain 04/06/23 04/06/23 Unknown History solifenacin 10 mg tablet 10 mg PO QAM 04/06/23 04/06/23 04/05/23 History tadalafil 20 mg tablet 20 mg PO QPM 04/06/23 04/06/23 04/05/23 History testosterone cypionate 200 mg/mL 200 mg IM Q30D 04/06/23 04/06/23 Unknown History intramuscular oil tizanidine 4 mg tablet 4 mg PO QPM PRN Muscle Spasm 04/06/23 04/06/23 Unknown History Allergies Allergy/AdvReac Type Severity Reaction Status Date / Time Penicillins AdvReac Unknown hives Verified 04/06/23 13:49 PFSH Acute 2 PFSH: Medical History Urinary incontinence Recurrent UTI Neurogenic bladder High blood pressure Asthma Smoker Opioid contract exists Encounter for long-term use of opiate analgesic Lumbar radiculitis Fingertip amputation Back Pain Cervical spine pain Surgical History H/O spinal fusion Family History Mother Dementia Father Cancer Other Hypertension Social History Alcohol intake: never Substance/Drug Use: never Marital status: Current occupational status: disabled Vitals/I&O/Wt Last Vital Signs Temp 97.8 F 04/06/23 12:15 Pulse 82 04/06/23 12:15 Resp 16 04/06/23 12:15 BP 146/83 04/06/23 12:15 Pulse Ox 97 04/06/23 12:15 O2 Del Method Room Air 04/06/23 12:15 Weight last 48 hrs Weight 118.841 kg Physical Exam 2 Const: COMMON NORMALS: no acute distress and patient oriented x3 HENMT: COMMON NORMALS: normocephalic HEAD & SCALP: normocephalic Neck/C-Spine: COMMON NORMALS: no JVD Resp: COMMON NORMALS: normal respiratory effort, No retractions, No use of accessory muscles and clear to auscultation bilaterally AUSCULTATION: clear to auscultation bilaterally Cardio: COMMON NORMALS: regular rate, regular rhythm, S1 normal heart sound present and S2 normal heart sound present RATE: regular rate RHYTHM: r egular rhythm HEART SOUNDS: S1 normal heart sound present and S2 normal heart sound present GI: COMMON NORMALS: Normal to inspection, nondistended, normoactive bowel sounds present, Soft to palpation and non-tender Extremity: COMMON NORMALS: no calf tenderness and no pedal edema Neuro: COMMON NORMALS: patient oriented x3, CN's II-XII intact bilaterally, moves all extremities and no focal motor deficits Psych: COMMON NORMALS: mental status grossly normal Urinary Catheter Management: Matson: Cath Placed During This Visit: yes Urinary Catheter Date of Insertion: 04/06/23 Urinary Catheter Time of Insertion: 13:00 Data 04/06/23 13:34 04/06/23 13:34 Micro: Microbiology 04/06/23 13:58 Blood Culture - Preliminary Blood SPECIMEN COLLECTED 04/06/23 14:00 Blood Culture - Preliminary Blood SPECIMEN COLLECTED A&P Assessment and plan (1) History of MDR Pseudomonas aeruginosa infection: (2) UTI (urinary tract infection): (3) Pyelonephritis: (4) Neurogenic bladder: Plan Multidrug-resistant Pseudomonas UTI, with pyelonephritis -Requiring IV antibiotics -Sensitive to cefepime, ceftazidime, Zosyn, intermediate sensitivity to meropenem Plan -Concerns for multidrug-resistant UTI, with suprapubic catheter in place -Start cefepime -Monitor clinical status closely -Culture, blood cultures, Pro-Shade, CRP -CT scan abdomen pelvis -Lovenox for DVT prophylaxis -Full code Attestations 2 Medical Necessity Statement*: Patient requires hospitalization, inpatient, greater than 2 midnights, for multidrug-resistant Pseudomonas UTI pyelonephritis, requiring IV antibiotics Diagnoses History of MDR Pseudomonas aeruginosa infection Z86.19 UTI (urinary tract infection) N39.0 Pyelonephritis N12 Neurogenic bladder N31.9
[2023-04-06] MEDS: pantoprazole 40 mg SDV IVP (17:09)
[2023-04-06] MEDS: enoxaparin 40 mg/0.4 mL Syringe SUBCUT (17:14)
[2023-04-06 17:32] LABS: Procalcitonin 0.09 ng/mL (0-0.5); Thyroid Stimulating Hormone 1.23 uIU/mL (0.27-4.20)
--- NOTE | 2023-04-06 19:08 | PC.NURSE ---
attempted report at this time, nurse unavailable
[2023-04-06 19:11] VITALS: BP 126/91; PULSE 71; RESP 16; TEMP 36.8; O2SAT 99
[2023-04-06 20:00] VITALS: BP 123/77; PULSE 78; RESP 18; TEMP 37.4; O2SAT 99
[2023-04-06 21:10] VITALS: BMI 33.6
[2023-04-07] VITALS (10 sets, daily range): BP systolic 110–153; BP diastolic 63–82; PULSE 54–86; RESP 16–19; TEMP 36.4–37.3; O2SAT 94–99
[2023-04-07] MEDS: oxyCODONE 5 mg IR Tab/Cap PO ×2 (03:45→16:18)
[2023-04-07 04:17] LABS: Basophils # 0.1 10^3/uL (0.0-0.1); Basophils % 0.8 %; Eosinophils # 0.3 10^3/uL (0.0-0.8); Eosinophils % 5.4 %; Hematocrit 42.3 % (37-53); Lymphocytes # 1.4 10^3/uL (0.8-4.8); Lymphocytes % 22.7 %; Mean Corpuscular HGB Conc 31.4 g/dL (30-55); Mean Corpuscular Hemoglobin 26.7 pg (27-33); Mean Corpuscular Volume 84.9 fl (82-101); Mean Platelet Volume 12.5 fL (7.4-10.4); Monocytes # 0.5 10^3/uL (0.2-0.9); Monocytes % 8.2 %; Neutrophils # 3.73 10^3/uL (1.8-7.7); Neutrophils % 62.4 %; Nucleated Red Blood Cells % 0 %; Platelet Count 134 10^3/cmm (157-399); Red Blood Count 4.98 10^6/uL (3.85-5.65); Red Cell Distribution Width 13.3 % (12.1-15.1); White Blood Count 5.98 10^3/uL (3.29-11.43)
[2023-04-07 04:28] LABS: Estmated Average Glucose 120; Hemoglobin A1C 5.8 % (4.0-6.0)
[2023-04-07 04:39] LABS: Alanine Aminotransferase 9 U/L (0-41); Albumin Level 3.3 g/dL (3.5-5.2); Alkaline Phosphatase 78 U/L (40-130); Aspartate Amino Transferase 12 U/L (0-40); Blood Urea Nitrogen 16 mg/dL (8-23); Calcium 8.9 mg/dL (8.5-10.5); Carbon Dioxide 27 mmol/L (22-29); Chloride 103 mmol/L (98-107); Creatinine Clr Calc Pharmacy 86.9818; Globulin 2.7 g/dL (1.3-4.6); Glomerular Filtration Rate 61.1 mL/min (90-130); Glucose 113 mg/dL (65-115); Magnesium 2.2 mg/dL (1.7-2.3); Osmolality Calculated 290 mOsm/kg (285-295); Phosphorus 4.1 mg/dL (2.5-4.5); Sodium 139 mmol/L (136-145); Total Bilirubin 0.4 mg/dL (0.15-1.2)
[2023-04-07 04:52] LABS: NT Pro B Type Natriuretic Pept 208 pg/mL (0-125)
[2023-04-07] MEDS: cefepime 1,000 MG in sodium chloride 0.9% (plus) 50 ML 100 MG IV ×2 (11:04→21:08)
[2023-04-07] MEDS: fluconazole 100 mg Tablet PO (13:50)
--- NOTE | 2023-04-07 13:55 | P.PN_ITS ---
Subjective 2 Subjective: Patient was seen this morning, no fevers, no chills, no cough, no lightheadedness Vitals/I&O/Wt Last Vital Signs Temp 97.7 F 04/07/23 12:00 Pulse 86 04/07/23 12:00 Resp 17 04/07/23 12:00 BP 137/68 04/07/23 12:00 Pulse Ox 95 04/07/23 12:00 O2 Del Method Room Air 04/07/23 12:00 04/06/23 04/07/23 04/07/23 22:59 06:59 14:59 Intake Total 290 / 290 480 / 480 Output Total 1999 / 1999 Balance 290 / 290 -2000 / -1710 480 / 480 Weight last 48 hrs Weight 120.701 kg Weight 118.841 kg Weight 118.841 kg Physical Exam 2 Const: COMMON NORMALS: no acute distress and patient oriented x3 Resp: COMMON NORMALS: normal respiratory effort, No retractions, No use of accessory muscles and clear to auscultation bilaterally AUSCULTATION: clear to auscultation bilaterally Cardio: COMMON NORMALS: regular rate, regular rhythm, S1 normal heart sound present and S2 normal heart sound present RATE: regular rate RHYTHM: r egular rhythm HEART SOUNDS: S1 normal heart sound present and S2 normal heart sound present GI: COMMON NORMALS: Normal to inspection, nondistended, normoactive bowel sounds present and non-tender Extremity: COMMON NORMALS: no pedal edema Neuro: COMMON NORMALS: patient oriented x3 Psych: COMMON NORMALS: mental status grossly normal Urinary Catheter Management: Matson: Cath Placed During This Visit: yes Urinary Catheter Date of Insertion: 04/06/23 Urinary Catheter Time of Insertion: 13:00 Data 04/07/23 03:25 04/07/23 03:25 Micro: Microbiology 04/06/23 13:58 Blood Culture - Preliminary Blood SPECIMEN COLLECTED 04/06/23 14:00 Blood Culture - Preliminary Blood SPECIMEN COLLECTED A&P Assessment and plan (1) History of MDR Pseudomonas aeruginosa infection: (2) UTI (urinary tract infection): (3) Pyelonephritis: (4) Neurogenic bladder: Plan Multidrug-resistant Pseudomonas UTI, with pyelonephritis -Requiring IV antibiotics -Sensitive to cefepime, ceftazidime, Zosyn, intermediate sensitivity to meropenem Plan -Concerns for multidrug-resistant UTI, with suprapubic catheter in place -cefepime -Monitor clinical status closely -Culture, blood cultures, -CT scan abdomen pelvis no radiographic evidence of obstructive pyelo -Lovenox for DVT prophylaxis -Full code Attestations 2 Medical Necessity Statement*: Patient requires hospitalization for multidrug-resistant Pseudomonas UTI requiring IV antibiotics IV cefepime Diagnoses History of MDR Pseudomonas aeruginosa infection Z86.19 UTI (urinary tract infection) N39.0 Pyelonephritis N12 Neurogenic bladder N31.9
--- NOTE | 2023-04-07 14:34 | PC.CHAP ---
Pastoral Care Encounter/Spiritual Assessment Type of Contact [] Declined slag mixer visit [] Patient/Family/Request visit [] Outpatient visit [] Follow-up visit [] Physician referral [] Code/Alert [] Routine visit [] Staff referral [] Actively dying [] Patient sleeping [] Family support [] [] Out of room [] Palliative care [] [] Receiving care in room [] Pre-surgical visit [] Trauma [] Long length of stay [] ICU visit [] Other: Relational/Emotional Strength [x] Patient feels connected with others/family/visitors/staff [] Distress [] Loneliness/isolation [] Abandonment Spirituality of Patient [x] Person of Tanisha [x] Attends Mormon of their Tanisha []x Believes in Prayer [x] Reads Bible or Advent materials [] There are Spiritual issues to be addressed Certified Industrial Hygienist Interventions [x] Prayer [x] Active listening [] Non-anxious presence [] Spiritual/emotional support [] Crisis/trauma care [] Spiritual counseling [] Bereavement support [] Provided bereavement packet [] Provided Bible/devotional materials [] Provided toy/stuffed animal, coloring book to patient or family member [] Provided Communion [] Anointing/[place] [] Salvation [] Completed spiritual assessment [] Other: Impact on Illness or Injury [] Angry [] Fearful [] Anxious [] Often cries [] Exhaustion [] Unable to work [] Unable to attend cheondoism [] Unable to walk/stand [] Unable to read [] Unable to drive [] Unable to eat/drink [] Unable to sleep [] Unable to be with family [] Patient intubated [] Other: Summary Prayed with pt. and and spoke with them for about an hour just chatting about God's miracles, family, the world, children and grandchildren, etc Time spent with patient
[2023-04-07] MEDS: enoxaparin 40 mg/0.4 mL Syringe SUBCUT (16:18)
[2023-04-07] MEDS: pantoprazole DR 40 mg Tablet PO (17:41)
[2023-04-07] MEDS: oxybutynin chloride XL 5 MG TABLET 15 MG PO (17:41)
--- NOTE | 2023-04-07 18:11 | PC.NURSE ---
Patient states lives in with chronic pain. Pain level is from 7-9 constantly. He is very good about dealing with his pain level. Medications is given when patient asks for it. Time is written or board.
[2023-04-07] MEDS: tizanidine 4 mg Tablet PO (20:08)
[2023-04-08] VITALS (7 sets, daily range): BP systolic 103–160; BP diastolic 66–75; PULSE 60–76; RESP 17–18; TEMP 36.4–36.9; O2SAT 95–97; BMI 34.9
[2023-04-08] MEDS: FUROsemide 40 mg Tablet PO (05:14)
[2023-04-08 05:59] LABS: Basophils % 0.8 %; Eosinophils # 0.3 10^3/uL (0.0-0.8); Eosinophils % 6.1 %; Hematocrit 41.9 % (37-53); Lymphocytes # 1.6 10^3/uL (0.8-4.8); Lymphocytes % 33.5 %; Mean Corpuscular HGB Conc 30.8 g/dL (30-55); Mean Corpuscular Hemoglobin 26.3 pg (27-33); Mean Corpuscular Volume 85.5 fl (82-101); Mean Platelet Volume 11.6 fL (7.4-10.4); Monocytes # 0.3 10^3/uL (0.2-0.9); Monocytes % 6.5 %; Neutrophils # 2.48 10^3/uL (1.8-7.7); Neutrophils % 52.5 %; Nucleated Red Blood Cells % 0 %; Platelet Count 178 10^3/cmm (157-399); Red Cell Distribution Width 13.1 % (12.1-15.1); White Blood Count 4.74 10^3/uL (3.29-11.43)
[2023-04-08 06:22] LABS: Alanine Aminotransferase 9 U/L (0-41); Albumin Level 3.3 g/dL (3.5-5.2); Alkaline Phosphatase 81 U/L (40-130); Anion Gap 12.2 (5-19); Aspartate Amino Transferase 12 U/L (0-40); Blood Urea Nitrogen 16 mg/dL (8-23); Calcium 8.8 mg/dL (8.5-10.5); Carbon Dioxide 26 mmol/L (22-29); Chloride 106 mmol/L (98-107); Creatinine Clr Calc Pharmacy 86.9818; Globulin 2.6 g/dL (1.3-4.6); Glomerular Filtration Rate 61.1 mL/min (90-130); Glucose 113 mg/dL (65-115); Magnesium 2.4 mg/dL (1.7-2.3); Osmolality Calculated 292 mOsm/kg (285-295); Phosphorus 4.1 mg/dL (2.5-4.5); Potassium 4.2 mmol/L (3.5-5.1); Sodium 140 mmol/L (136-145); Total Bilirubin 0.3 mg/dL (0.15-1.2); Total Protein 5.9 g/dL (6.6-8.7)
[2023-04-08] MEDS: pantoprazole DR 40 mg Tablet PO ×2 (08:10→18:04)
[2023-04-08] MEDS: fluconazole 100 mg Tablet PO (08:10)
[2023-04-08] MEDS: oxyCODONE 5 mg IR Tab/Cap PO ×2 (08:14→18:03)
--- NOTE | 2023-04-08 10:10 | P.PN_ITS ---
Subjective 2 Subjective: Patient was seen this morning, no fevers, chills, cough, no lightheadedness, dizziness Vitals/I&O/Wt Last Vital Signs Temp 97.9 F 04/08/23 08:00 Pulse 76 04/08/23 08:00 Resp 18 04/08/23 08:14 BP 103/66 04/08/23 08:00 Pulse Ox 96 04/08/23 08:14 O2 Del Method Room Air 04/08/23 08:00 04/07/23 04/08/23 04/08/23 22:59 06:59 14:59 Intake Total 220 / 700 360 / 360 Output Total 425 / 425 2050 / 2475 Balance -205 / 275 -2050 / -1775 360 / 360 Weight last 48 hrs Weight 123.695 kg Weight 120.701 kg Weight 118.841 kg Weight 118.841 kg Physical Exam 2 Const: COMMON NORMALS: no acute distress and patient oriented x3 Resp: COMMON NORMALS: normal respiratory effort, No retractions, No use of accessory muscles and clear to auscultation bilaterally AUSCULTATION: clear to auscultation bilaterally Cardio: COMMON NORMALS: regular rate, regular rhythm, S1 normal heart sound present and S2 normal heart sound present RATE: regular rate RHYTHM: r egular rhythm HEART SOUNDS: S1 normal heart sound present and S2 normal heart sound present GI: COMMON NORMALS: Normal to inspection, nondistended, normoactive bowel sounds present and non-tender Extremity: COMMON NORMALS: no pedal edema Neuro: COMMON NORMALS: patient oriented x3 Psych: COMMON NORMALS: mental status grossly normal Urinary Catheter Management: Matson: Cath Placed During This Visit: yes Urinary Catheter Date of Insertion: 04/06/23 Urinary Catheter Time of Insertion: 13:00 Data 04/08/23 05:35 04/08/23 05:35 Micro: Microbiology 04/06/23 14:33 Urine Culture - Final Urine Catheterized 04/06/23 13:58 Blood Culture - Preliminary Blood NEGATIVE TO DATE 04/06/23 14:00 Blood Culture - Preliminary Blood NEGATIVE TO DATE A&P Assessment and plan (1) History of MDR Pseudomonas aeruginosa infection: (2) UTI (urinary tract infection): (3) Pyelonephritis: (4) Neurogenic bladder: Plan Multidrug-resistant Pseudomonas UTI, with pyelonephritis -Requiring IV antibiotics -Sensitive to cefepime, ceftazidime, Zosyn, intermediate sensitivity to meropenem Plan -Concerns for multidrug-resistant UTI, with suprapubic catheter in place -cefepime -Monitor clinical status closely -Culture, blood cultures, -CT scan abdomen pelvis no radiographic evidence of obstructive pyelo -Lovenox for DVT prophylaxis -Full code Will have to request medical records from [facility], and from his primary care specifically the urine cultures and blood cultures, will have a discussion with infectious disease tomorrow, about duration of antibiotics and watch antibiotics to potentially discharge him on, family is agreeable if need be he can come back to the hospital daily for IV antibiotics, once daily ertapenem could be an option but we will have to look at's cultures and sensitivities as there is intermediate mediate sensitivity to meropenem Attestations 2 Medical Necessity Statement*: Patient requires hospitalization for UTI, pyelonephritis, multidrug-resistant Pseudomonas Diagnoses History of MDR Pseudomonas aeruginosa infection Z86.19 UTI (urinary tract infection) N39.0 Pyelonephritis N12 Neurogenic bladder N31.9
[2023-04-08] MEDS: acetaminophen 325 mg Tablet 650 MG PO (10:31)
[2023-04-08] MEDS: cefepime 2,000 MG in sodium chloride 0.9% (plus) 50 ML 100 MG IV ×2 (11:07→23:23)
--- NOTE | 2023-04-08 11:19 | PC.NURSE ---
Patient was given pain medication and tylenol this am. Head hurts at a level of 10. Patient states head is still at a 10. This nurse ask patient what is done at home since headaches are a history for him? Patient states he takes what he can and deals with it.
--- NOTE | 2023-04-08 15:38 | USR_ITS ---
PROCEDURE INFORMATION: Exam: US Duplex Right Lower Extremity Veins, Limited Exam date and time: 04/08/2023 5:38 PM Age: 62 years old Clinical indication: Edema, localized; Lower extremity, right; Additional info: Rule out dvt TECHNIQUE: Imaging protocol: Real-time duplex ultrasound of the right extremity with 2-D castellano scale, color Doppler flow and spectral waveform analysis including responses to compression and other maneuvers (when performed) with image documentation. Limited exam was focused on the right lower extremity veins. COMPARISON: CT abdomen pelvis wo con [id number] 04/06/2023 4:58 PM FINDINGS: Right deep veins: The common femoral, femoral, proximal profunda femoral and popliteal veins are patent without evidence of thrombus and demonstrate normal waveforms. Superficial veins: Saphenofemoral junction is patent without thrombus. No evidence of thrombophlebitis. Soft tissues: No gross sonographic abnormality. US/[place] [id number] IMPRESSION: 1. No sonographic evidence of deep venous thrombosis in the right lower extremity.
[2023-04-08] MEDS: enoxaparin 40 mg/0.4 mL Syringe SUBCUT (18:03)
[2023-04-08] MEDS: oxybutynin chloride XL 5 MG TABLET 15 MG PO (18:03)
[2023-04-08] MEDS: tizanidine 4 mg Tablet PO (20:35)
[2023-04-09] VITALS (10 sets, daily range): BP systolic 114–147; BP diastolic 54–86; PULSE 57–63; RESP 17–18; TEMP 36.3–37.2; O2SAT 96–97; BMI 35.2
[2023-04-09] MEDS: oxyCODONE 5 mg IR Tab/Cap PO ×3 (03:18→22:08)
[2023-04-09 05:17] LABS: Basophils % 0.8 %; Eosinophils # 0.4 10^3/uL (0.0-0.8); Eosinophils % 7.7 %; Hematocrit 41.3 % (37-53); Lymphocytes # 1.5 10^3/uL (0.8-4.8); Mean Corpuscular HGB Conc 30.3 g/dL (30-55); Mean Corpuscular Hemoglobin 26.2 pg (27-33); Mean Corpuscular Volume 86.6 fl (82-101); Mean Platelet Volume 11.2 fL (7.4-10.4); Monocytes # 0.4 10^3/uL (0.2-0.9); Monocytes % 7.3 %; Neutrophils # 2.72 10^3/uL (1.8-7.7); Neutrophils % 53.6 %; Nucleated Red Blood Cells % 0 %; Platelet Count 181 10^3/cmm (157-399); Red Blood Count 4.77 10^6/uL (3.85-5.65); Red Cell Distribution Width 13.2 % (12.1-15.1); White Blood Count 5.07 10^3/uL (3.29-11.43)
[2023-04-09 05:41] LABS: Alanine Aminotransferase 10 U/L (0-41); Albumin Level 3.3 g/dL (3.5-5.2); Alkaline Phosphatase 72 U/L (40-130); Anion Gap 13.8 (5-19); Aspartate Amino Transferase 11 U/L (0-40); Blood Urea Nitrogen 17 mg/dL (8-23); Calcium 8.7 mg/dL (8.5-10.5); Carbon Dioxide 26 mmol/L (22-29); Chloride 108 mmol/L (98-107); Creatinine Clr Calc Pharmacy 88.2916; Globulin 2.5 g/dL (1.3-4.6); Glomerular Filtration Rate 61.1 mL/min (90-130); Glucose 121 mg/dL (65-115); Magnesium 2.2 mg/dL (1.7-2.3); Osmolality Calculated 301 mOsm/kg (285-295); Phosphorus 3.7 mg/dL (2.5-4.5); Potassium 3.8 mmol/L (3.5-5.1); Sodium 144 mmol/L (136-145); Total Bilirubin 0.2 mg/dL (0.15-1.2); Total Protein 5.8 g/dL (6.6-8.7)
[2023-04-09] MEDS: FUROsemide 40 mg Tablet PO (05:55)
[2023-04-09] MEDS: fluconazole 100 mg Tablet PO (08:24)
[2023-04-09] MEDS: pantoprazole DR 40 mg Tablet PO ×2 (08:24→17:10)
[2023-04-09] MEDS: acetaminophen 325 mg Tablet 650 MG PO (08:26)
[2023-04-09] MEDS: cefepime 2,000 MG in sodium chloride 0.9% (plus) 50 ML 100 MG IV ×2 (10:15→22:10)
--- NOTE | 2023-04-09 13:41 | PC.SOCIAL ---
Pg 2 IMM Explained to pt Pg 2 IMM. No questions voiced. Provided pt a copy. Initialed, dated, & timed a copy & placed in chart.
--- NOTE | 2023-04-09 14:17 | XR_ITS ---
WS: [id number] CHEST XRAY TECHNIQUE: Portable chest. CLINICAL INFORMATION: Post PICC insertion FINDINGS: LEFT PICC line with tip in the distal SVC. No pneumothorax. Heart: Shallow inspiration. Cardiomegaly. Lungs: No consolidation or pleural effusion. Bones: Normal visualized bony structures. IMPRESSION: LEFT PICC line with tip in the distal SVC. No pneumothorax.
--- NOTE | 2023-04-09 14:57 | P.PN_ITS ---
Subjective 2 Subjective: Patient endorses ongoing chills. Attempted to discuss with patient his recent infection and culture results. It appears he receives care across multiple health systems ([facility], [facility], [facility] and [facility] He follows with urologist Dev Callahan. Patient reports recent treatment with fluoroquinolones with ciprofloxacin and levofloxacin without desired result. Records were obtained from [facility] which revealed a Ux from 03/27/23 with P. aeruginosa resistent to fluoroquinolones. This resistance pattern was new compared to his older cultures in 2022 at [facility] which showed recurrent pansensitive PA. His more recent urine culture on 04/05/23 at [facility] was negative for P. aeruginosa (positive for Shamika). And his most recent urine culture upon admission on 04/06/23 now finalized with no growth. Medications: Reviewed: Yes Vitals/I&O/Wt Last Vital Signs Temp 97.6 F 04/09/23 11:29 Pulse 63 04/09/23 11:29 Resp 18 04/09/23 13:55 BP 146/63 04/09/23 11:29 Pulse Ox 97 04/09/23 11:29 O2 Del Method Room Air 04/09/23 11:29 04/08/23 04/09/23 04/09/23 22:59 06:59 14:59 Intake Total 480 / 1490 50 / 1540 410 / 410 Output Total 300 / 1400 650 / 2050 1900 / 1900 Balance 180 / 90 -600 / -510 -1490 / -1490 Weight last 48 hrs Weight 124.375 kg Weight 123.695 kg Physical Exam 2 Narrative: General: Patient is awake. Head: Normocephalic. Atraumatic. Neck: No JVD. Cardiovascular: Lungs: Nonlabored. No accessory muscle use. Room air. Skin: No jaundice. Abdomen: Not distended. Genito Urinary: Catheter present. Extremities: No cyanosis. Musculoskeletal: No erythematous joints. Neurological: No myoclonus. Urinary Catheter Management: Matson: Cath Placed During This Visit: yes Urinary Catheter Date of Insertion: 04/06/23 Urinary Catheter Time of Insertion: 13:00 Data 04/09/23 04:41 04/09/23 04:41 Micro: Microbiology 04/06/23 14:33 Urine Culture - Final Urine Catheterized A&P Assessment and plan (1) Recurrent UTI: (2) Neurogenic bladder: (3) History of MDR Pseudomonas aeruginosa infection: Plan History of Pseudomonas aeruginosa with fluoroquinolone resistance Nephrogenic bladder with suprapubic catheter -Continue cefepime, PICC line ordered for outpatient treatment -Anticipate 10 to 14 days of IV antibiotic treatment, preference is for longer treatment -Okay to continue fluconazole -Continue oxybutynin -Continue Solifenacin - consult for assistance Chronic pain on opiates -Continue home meds DVT prophylaxis: Lovenox CODE STATUS: Full code Attestations 2 Medical Necessity Statement*: Patient requires ongoing hospitalization for IV antibiotics while PICC line and home antibiotics can be arranged. Coding Level of Care Code Acute Code for [facility] Fwd Diagnoses Recurrent UTI N39.0 Neurogenic bladder N31.9 History of MDR Pseudomonas aeruginosa infection Z86.19
--- NOTE | 2023-04-09 16:00 | PC.NURSE ---
Single lumen PICC placed to left basilic vein. Referred to vascular access nurse for PICC placement for IV antibiotics > 14 days. Pt right hand dominant and requests PICC in left arm. Risks and benefits discussed and informed consent obtained from patient. Left arm assessed with left basilic vein measuring 5 mm, straight, and apparent best choice for placement. Using sterile technique and MST, left basilic vein accessed x 1 stick. Mid-arm circumference measured 10 cm from left AC 31 cm. Trimmed cath 50 cm with 1 cm external length noted. CXR shows tip in distal SVC, in good position for use per radiologist. Line secured with stat-lock. Insertion site covered with Biopatch and TSM. Report given to bedside nurseMichelle.
[2023-04-09] MEDS: enoxaparin 40 mg/0.4 mL Syringe SUBCUT (17:10)
[2023-04-10] VITALS (7 sets, daily range): BP systolic 115–157; BP diastolic 73–96; PULSE 57–80; RESP 17–20; TEMP 36.4–37.2; O2SAT 93–96
[2023-04-10] MEDS: FUROsemide 40 mg Tablet PO (05:21)
[2023-04-10] MEDS: pantoprazole DR 40 mg Tablet PO ×2 (08:00→17:17)
[2023-04-10] MEDS: fluconazole 100 mg Tablet PO (08:00)
[2023-04-10] MEDS: cefepime 2,000 MG in sodium chloride 0.9% (plus) 50 ML 100 MG IV ×2 (10:14→22:29)
[2023-04-10] MEDS: oxyCODONE 5 mg IR Tab/Cap PO ×2 (10:18→22:28)
[2023-04-10] MEDS: acetaminophen 325 mg Tablet 650 MG PO (14:48)
[2023-04-10] MEDS: enoxaparin 40 mg/0.4 mL Syringe SUBCUT (15:36)
[2023-04-10] MEDS: oxybutynin chloride XL 5 MG TABLET 15 MG PO (17:17)
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
[2023-04-11] VITALS: BP 146/80; PULSE 67; RESP 17; TEMP 36.6; O2SAT 96
[2023-04-11 04:00] VITALS: BP 118/58; PULSE 60; RESP 17; TEMP 36.8; O2SAT 96
[2023-04-11 05:12] LABS: Basophils % 0.8 %; Eosinophils # 0.4 10^3/uL (0.0-0.8); Eosinophils % 7.8 %; Hematocrit 41.2 % (37-53); Lymphocytes # 1.5 10^3/uL (0.8-4.8); Lymphocytes % 29.5 %; Mean Corpuscular HGB Conc 31.1 g/dL (30-55); Mean Corpuscular Hemoglobin 26.7 pg (27-33); Mean Platelet Volume 10.9 fL (7.4-10.4); Monocytes # 0.4 10^3/uL (0.2-0.9); Monocytes % 6.8 %; Neutrophils # 2.79 10^3/uL (1.8-7.7); Neutrophils % 54.5 %; Nucleated Red Blood Cells % 0 %; Platelet Count 185 10^3/cmm (157-399); Red Blood Count 4.79 10^6/uL (3.85-5.65); White Blood Count 5.12 10^3/uL (3.29-11.43)
[2023-04-11 05:36] LABS: Alanine Aminotransferase 11 U/L (0-41); Albumin Level 3.5 g/dL (3.5-5.2); Alkaline Phosphatase 78 U/L (40-130); Aspartate Amino Transferase 14 U/L (0-40); Blood Urea Nitrogen 21 mg/dL (8-23); Calcium 8.8 mg/dL (8.5-10.5); Carbon Dioxide 28 mmol/L (22-29); Chloride 105 mmol/L (98-107); Creatinine Clr Calc Pharmacy 79.3804; Globulin 2.7 g/dL (1.3-4.6); Glomerular Filtration Rate 55.8 mL/min (90-130); Glucose 120 mg/dL (65-115); Magnesium 2.3 mg/dL (1.7-2.3); Osmolality Calculated 298 mOsm/kg (285-295); Phosphorus 3.7 mg/dL (2.5-4.5); Sodium 142 mmol/L (136-145); Total Bilirubin 0.2 mg/dL (0.15-1.2); Total Protein 6.2 g/dL (6.6-8.7)
[2023-04-11 05:47] LABS: Anion Gap 13.1 (5-19); Potassium 4.1 mmol/L (3.5-5.1)
[2023-04-11] MEDS: FUROsemide 40 mg Tablet PO (05:48)
[2023-04-11 07:52] VITALS: BP 158/83; PULSE 63; RESP 19; TEMP 36.6; O2SAT 96
[2023-04-11] MEDS: pantoprazole DR 40 mg Tablet PO (08:23)
[2023-04-11] MEDS: fluconazole 100 mg Tablet PO (08:23)
[2023-04-11] MEDS: cefepime 2,000 MG in sodium chloride 0.9% (plus) 50 ML 100 MG IV (10:43)
[2023-04-11 11:18] VITALS: RESP 18
[2023-04-11] MEDS: oxyCODONE 5 mg IR Tab/Cap PO (11:18)
[2023-04-11 12:27] VITALS: BP 114/68; PULSE 79; RESP 18; TEMP 36.2; O2SAT 93
--- NOTE | 2023-04-11 13:27 | PC.SOCIAL ---
IMM Updated Updated pt on IMM. No questions voiced. Provided pt a copy. Initialed, dated, & timed copy in chart.
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
--- NOTE | 2023-04-11 15:54 | PC.NURSE ---
Discharge instructions provided to pt and . NO questions or concerns at this time. Pt to private vehicle via wheelchair with all belongings.
[2023-04-11 15:55] VITALS: BP 114/68; PULSE 79; RESP 18; TEMP 36.2; O2SAT 93
== END 2023-04-11 16:05 | disposition home or self-care (01) | DRG 690 ==
LOC: ER 16:42 → MEDSURG 18:44
PROVIDERS: Admitting Provider Family Medicine; Emergency Provider Physician Assistant; PCP Family Medicine; Visit Provider Internal Medicine
DX: N39.0 Urinary tract infection, site not specified (principal); Z16.24 Resistance to multiple antibiotics; B96.5 Pseudomonas (aeruginosa) (mallei) (pseudomallei) as the cause of diseases classified elsewhere; N31.9 Neuromuscular dysfunction of bladder, unspecified; Z96.0 Presence of urogenital implants; Z87.440 Personal history of urinary (tract) infections; J45.909 Unspecified asthma, uncomplicated; R51.9 Headache, unspecified; Z98.1 Arthrodesis status; N40.1 Benign prostatic hyperplasia with lower urinary tract symptoms; N39.498 Other specified urinary incontinence; K21.9 Gastro-esophageal reflux disease without esophagitis; E78.5 Hyperlipidemia, unspecified; G89.29 Other chronic pain; M54.2 Cervicalgia; M54.9 Dorsalgia, unspecified; Z79.891 Long term (current) use of opiate analgesic
CPT/HCPCS: 36415; 36573; 36592; 51702; 71045; 74176; 80053; 81001; 83036; 83605; 83735; 83880; 84100; 84145; 84443; 85025; 86140; 87040; 87086; 93971; 96365; 96372; 96375; 99285; C9113; J0692; J1650

== ENCOUNTER 2023-06-16 14:00 | Emergency (ER) | payer MEDICARE, SELFPAY ==
[2023-06-16 14:19] VITALS: BP 119/80; PULSE 72; RESP 17; TEMP 36.4; O2SAT 97; BMI 33.6
[2023-06-16 16:07] LABS: Basophils # 0.1 10^3/uL (0.0-0.1); Basophils % 0.8 %; Eosinophils # 0.4 10^3/uL (0.0-0.8); Eosinophils % 4.6 %; Hematocrit 47.8 % (37-53); Lymphocytes # 1.7 10^3/uL (0.8-4.8); Lymphocytes % 22.2 %; Mean Corpuscular HGB Conc 31.2 g/dL (30-55); Mean Corpuscular Hemoglobin 26.5 pg (27-33); Mean Corpuscular Volume 84.9 fl (82-101); Mean Platelet Volume 11.2 fL (7.4-10.4); Monocytes # 0.5 10^3/uL (0.2-0.9); Neutrophils # 5.06 10^3/uL (1.8-7.7); Neutrophils % 65.9 %; Nucleated Red Blood Cells % 0 %; Platelet Count 211 10^3/cmm (157-399); Red Blood Count 5.63 10^6/uL (3.85-5.65); Red Cell Distribution Width 14.7 % (12.1-15.1); White Blood Count 7.67 10^3/uL (3.29-11.43)
--- NOTE | 2023-06-16 16:23 | ED_ITS ---
HPI - Male Genitourinary 2 General: Chief complaint: Urogenital-Male Stated complaint: trouble urinating, fever and headache Time Seen by Provider: 06/16/23 16:23 History of Present Illness: 63-year-old male presents emergency depa rtment with complaints of feeling like he has a urinary tract infection. He states he also has a fever and a headache intermittently. He was seen recently by his primary care provider and started on ciprofloxacin he does have a chronic indwelling suprapubic Matson catheter and he is accompanied by his family member. Patient states that he has a cervical spine fusion and since that time he has had difficulty with ambulation and a neurogenic bladder. He states this spinal surgery occurred many years ago. He states he does have recurrent urinary tract infections and is concerned that the ciprofloxacin antibiotic that he was provided is not working. He states that he has been septic in the past and wanted to ensure that that was not occurring. Review of Systems 2 General: Reports: 10 or more systems reviewed and unremarkable except in HPI and below Const: Reports: fever(s) : Reports: other (Suprapubic catheter) Neuro: Reports: headache(s) PFSH ED 2 PFSH: Medical History Urinary incontinence Recurrent UTI Neurogenic bladder High blood pressure Asthma Smoker Opioid contract exists Encounter for long-term use of opiate analgesic Lumbar radiculitis Fingertip amputation Back Pain Cervical spine pain Surgical History H/O spinal fusion Family History Mother Dementia Father Cancer Other Hypertension Social History Alcohol intake: never Substance/Drug Use: never Marital status: Current occupational status: disabled Physical Exam 2 Narrative: EXAM NARRATIVE: General: Alert, no acute distress. Skin: Warm, dry, Intact. Head: Normocephalic, atraumatic. Neck: Supple, trachea midline. Eye: Extraocular movements are intact. PERRLA Ears, nose, mouth and throat: mucosa moist. Cardiovascular: Regular, Normal peripheral perfusion. Respiratory: Lungs are clear to auscultation, respirations are non-labored, breath sounds are equal, Symmetrical chest wall expansion. Gastrointestinal: Soft, Nontender, Non distended, Normal bowel sounds. Musculoskeletal: Normal ROM, no deformity. Neurological: Alert and oriented, No focal neurological deficit observed. Psychiatric: Cooperative, appropriate mood & affect. Genitourinary: Suprapubic catheter in place no obvious obstruction draining clear yellow urine Course 2 Vital Signs: Vital signs: Vital Signs Temperature 97.5 F L 06/16/23 14:19 Pulse Rate 72 06/16/23 14:19 Respiratory Rate 17 06/16/23 14:19 Blood Pressure 119/80 06/16/23 14:19 Pulse Oximetry 97 06/16/23 14:19 Oxygen Delivery Me thod Room Air 06/16/23 14:19 MDM - Male Medical Decision Making Physical exam completed and documented, I did obtain a CBC and CMP as well as urinalysis. CMP was essentially unremarkable to CMP was unremarkable. Urinalysis did return nitrate positive, 2+ leukocyte esterase, too numerous to count WBCs and 2+ bacteria. Lab Data I reviewed the patient's lab results. 06/16/23 15:56 06/16/23 15:56 Laboratory Results WBC 7.67 10^3/uL (3.29-11.43) 06/16/23 15:56 RBC 5.63 10^6/uL (3.85-5.65) 06/16/23 15:56 Hgb 14.90 g/dL (11.27-16.99) 06/16/23 15:56 Hct 47.8 % (37-53) 06/16/23 15:56 MCV 84.9 fl (82-101) 06/16/23 15:56 MCH 26.5 pg (27-33) L 06/16/23 15:56 MCHC 31.2 g/dL (30-55) 06/16/23 15:56 RDW 14.7 % (12.1-15.1) 06/16/23 15:56 Plt Count 211 10^3/cmm (157-399) 06/16/23 15:56 MPV 11.2 fL (7.4-10.4) H 06/16/23 15:56 Neut % (Auto) 65.9 % 06/16/23 15:56 Lymph % (Auto) 22.2 % 06/16/23 15:56 [place] % (Auto) 6.0 % 06/16/23 15:56 Eos % (Auto) 4.6 % 06/16/23 15:56 Baso % (Auto) 0.8 % 06/16/23 15:56 Neut # (Auto) 5.06 10^3/uL (1.8-7.7) 06/16/23 15:56 Lymph # (Auto) 1.7 10^3/uL (0.8-4.8) 06/16/23 15:56 [place] # (Auto) 0.5 10^3/uL (0.2-0.9) 06/16/23 15:56 Eos # (Auto) 0.4 10^3/uL (0.0-0.8) 06/16/23 15:56 Baso # (Auto) 0.1 10^3/uL (0.0-0.1) 06/16/23 15:56 Nucleated RBC % (auto) 0 % 06/16/23 15:56 Nucleated RBCs # 0.0 /100WBC 06/16/23 15:56 Sodium 140 mmol/L (136-145) 06/16/23 15:56 Potassium 3.6 mmol/L (3.5-5.1) 06/16/23 15:56 Chloride 104 mmol/L (98-107) 06/16/23 15:56 Carbon Dioxide 24 mmol/L (22-29) 06/16/23 15:56 Anion Gap 15.6 (5-19) 06/16/23 15:56 BUN 12 mg/dL (8-23) 06/16/23 15:56 Creatinine 1.2 mg/dL (0.7-1.2) 06/16/23 15:56 GFR Calculation 61.0 mL/min (90-130) L 06/16/23 15:56 Glucose 100 mg/dL (65-115) 06/16/23 15:56 Calculated Osmolality 290 mOsm/kg (285-295) 06/16/23 15:56 Lactic Acid 1.5 mmol/L (0.5-2.2) 06/16/23 15:56 Calcium 9.2 mg/dL (8.5-10.5) 06/16/23 15:56 Total Bilirubin 0.4 mg/dL (0.15-1.2) 06/16/23 15:56 AST 15 U/L (0-40) 06/16/23 15:56 ALT 10 U/L (0-41) 06/16/23 15:56 Alkaline Phosphatase 77 U/L (40-130) 06/16/23 15:56 C-Reactive Protein 35.1 mg/L (0.0-4.9) H 06/16/23 15:56 Total Protein 6.8 g/dL (6.6-8.7) 06/16/23 15:56 Albumin 3.7 g/dL (3.5-5.2) 06/16/23 15:56 Globulin 3.1 g/dL (1.3-4.6) 06/16/23 15:56 Procalcitonin 0.08 ng/mL (0-0.5) 06/16/23 15:56 Urine Color Yellow (Yellow) 06/16/23 17:04 Urine Appearance Cloudy (CLEAR) A 06/16/23 17:04 Urine pH 5 (5-7) 06/16/23 17:04 Ur Specific [place] 1.025 (1.005-1.030) 06/16/23 17:04 Urine Protein 2+ (Negative) H 06/16/23 17:04 Urine Glucose (UA) Norm (Normal) 06/16/23 17:04 Urine Ketones Negative (Negative) 06/16/23 17:04 Urine Blood 3+ (Negative) H 06/16/23 17:04 Urine Nitrate Positive (Negative) H 06/16/23 17:04 Urine Bilirubin Neg (Negative) 06/16/23 17:04 Urine Urobilinogen Norm mg/dL (Negative) 06/16/23 17:04 Ur Leukocyte Esterase 2+ (Negative) H 06/16/23 17:04 Urine RBC 15-25 /hpf (0-2) H 06/16/23 17:04 Urine WBC Too numerous to cnt /hpf (0-5) H 06/16/23 17:04 Ur Squamous Epith Cells Rare /hpf (0-5) 06/16/23 17:04 Ur Transition Epith Cell 0-4 /hpf 06/16/23 17:04 Amorphous Sediment Not Reportable 06/16/23 17:04 Urine Bacteria 2+ /hpf (NONE) H 04/27/24 17:04 No radiology studies performed this visit Discharge Plan Discharge Patient Disposition: Home Clinical Impression: Chronic UTI Condition: Stable Prescriptions: New Macrobid 100 mg capsule 100 mg PO Q12H 7 Days Qty: 14 0RF Rx Instructions: must administer with a meal/food No Action omeprazole 20 mg capsule,delayed release(DR/EC) 20 mg PO BID furosemide 40 mg tablet 40 mg PO QAM fluconazole 100 mg tablet 100 mg PO DAILY Rx Instructions: FOR 3 DAYS (RX FILLED 04/05/23) tizanidine 4 mg tablet 4 mg PO QPM PRN (Reason: Muscle Spasm) testosterone cypionate 200 mg/mL oil 200 mg IM Q30D Rx Instructions: DUE 04/05/23 tadalafil 20 mg tablet 20 mg PO QPM oxycodone 10 mg tablet 5 - 10 mg PO Q8H MDD 2.5 TABS PRN (Reason: Pain) Enemeez 283 mg/5 mL enema See Rx Instructions .ROUTE .COMPLEX Rx Instructions: USE ONE PER RECTUM DAILY NEEDED FOR BOWEL MANAGEMENT PROGRAM oxybutynin chloride 15 mg tablet extended release 24hr 15 mg PO QPM solifenacin 10 mg tablet 10 mg PO QAM Excedrin Migraine 250-250-65 mg Tablet 2 tab PO Q6H PRN (Reason: Migraine Headache) Primatene Mist 0.125 mg/actuation Hfa Aerosol Inhaler 1 puff INHALATION BID Discharge Orders: Discharge ED (Routine); Ordered 06/16/23 Ordered By: Maurice Sahu Referrals: Hany Tapia, DO [Primary Care Provider] - Discharge Diet: Usual diet Discharge Activity: Resume usual activity Patient Instructions: Opioid Safety, Pain Management Activity Restrictions/Additional Instructions: Activity Restrictions/Additional Instructions: Thank you for choosing [facility] for your healthcare needs today. Please realize that you were seen in the Emergency Department and that we are providing you with an emergency medical screening exam and this may not be a complete and all inclusive of all the testing and or medical work-up that you may need to determine your ailment or severity of your illness. It is very important that you follow-up as instructed with your Primary care provider or Specialist for additional evaluation and to discuss your medical treatment plan. Coding Level of Care Code ED [employer] Finance Manager for Virgilio Trejo
[2023-06-16 16:29] LABS: Lactic Sepsis W/Reflex 1.5 mmol/L (0.5-2.2)
[2023-06-16 16:30] LABS: Alanine Aminotransferase 10 U/L (0-41); Albumin Level 3.7 g/dL (3.5-5.2); Alkaline Phosphatase 77 U/L (40-130); Anion Gap 15.6 (5-19); Aspartate Amino Transferase 15 U/L (0-40); Blood Urea Nitrogen 12 mg/dL (8-23); C Reactive Protein 35.1 mg/L (0.0-4.9); Calcium 9.2 mg/dL (8.5-10.5); Carbon Dioxide 24 mmol/L (22-29); Chloride 104 mmol/L (98-107); Creatinine Clr Calc Pharmacy 85.1978; Globulin 3.1 g/dL (1.3-4.6); Glucose 100 mg/dL (65-115); Osmolality Calculated 290 mOsm/kg (285-295); Potassium 3.6 mmol/L (3.5-5.1); Sodium 140 mmol/L (136-145); Total Bilirubin 0.4 mg/dL (0.15-1.2); Total Protein 6.8 g/dL (6.6-8.7)
[2023-06-16 16:52] LABS: Procalcitonin 0.08 ng/mL (0-0.5)
[2023-06-16 17:20] LABS: Add Urine Culture? Yes; Bacteria Urine 2+ /hpf; Bilirubin Urine Neg (Negative); Blood Urine 3+ (Negative); Glucose Urine UA Norm (Normal); Ketones Urine Negative (Negative); Leukocyte Esterase Urine 2+ (Negative); Nitrate Urine Positive (Negative); Protein Urine 2+ (Negative); RBC Urine 15-25 /hpf (0-2); Specific Gravity, Urine 1.025 (1.005-1.030); Squamous Epithelial Cell Urine RARE /hpf (0-5); Transitional Epi Cells Urine 0-4 /hpf; Urine Appearance Cloudy (CLEAR); Urine Color Yellow (Yellow); Urobilinogen Urine Norm (Negative); WBC Urine TOO NUMEROUS TO CNT /hpf (0-5); pH Urine 5 (5-7)
== END 2023-06-16 18:22 | disposition home or self-care (01) ==
PROVIDERS: Emergency Medicine; Emergency Provider Internal Medicine; PCP Family Medicine
DX: N39.0 Urinary tract infection, site not specified (principal); Z87.440 Personal history of urinary (tract) infections
CPT/HCPCS: 36415; 80053; 81001; 83605; 84145; 85025; 86140; 87040; 87077; 87086; 87150; 87186; 87205; 99283

== ENCOUNTER 2024-09-19 05:00 | Outpatient (RCR) | payer MEDICARE, SELFPAY | END 2024-10-19 23:59 | disposition home or self-care (01) | LOC: MPT 05:00 | PROVIDERS: Visit Provider Family Medicine | DX: S34.13 Other and unspecified injury to sacral spinal cord (principal); X58.XXXD Exposure to other specified factors, subsequent encounter | CPT/HCPCS: 97110; 97162 ==

== ENCOUNTER 2024-09-19 05:00 | Outpatient (RCR) | payer MEDICARE, SELFPAY | END 2024-10-19 23:59 | disposition home or self-care (01) | LOC: SOT 05:00 | PROVIDERS: Visit Provider Family Medicine | DX: R26.2 Difficulty in walking, not elsewhere classified (principal) | CPT/HCPCS: 97167 ==

== ENCOUNTER 2024-10-20 05:00 | Outpatient (RCR) | payer MEDICARE, SELFPAY | END 2024-11-18 23:59 | disposition home or self-care (01) | LOC: MPT 05:00 | PROVIDERS: Visit Provider Family Medicine | DX: S34.13 Other and unspecified injury to sacral spinal cord (principal); X58.XXXD Exposure to other specified factors, subsequent encounter | CPT/HCPCS: 97110; 97530 ==

== ENCOUNTER 2024-12-15 13:54 | Outpatient (RCR) | payer MEDICARE, SELFPAY | END 2024-12-19 23:59 | disposition home or self-care (01) | LOC: MPT 13:54 | PROVIDERS: Visit Provider Family Medicine | DX: S34.13 Other and unspecified injury to sacral spinal cord (principal); X58.XXXS Exposure to other specified factors, sequela | CPT/HCPCS: 97110; 97530 ==

== ENCOUNTER 2025-01-14 11:59 | Outpatient (RCR) | payer MEDICARE, SELFPAY | END 2025-01-18 23:59 | disposition home or self-care (01) | LOC: MPT 11:59 | PROVIDERS: Visit Provider Family Medicine | DX: S34.13 Other and unspecified injury to sacral spinal cord (principal) | CPT/HCPCS: 97110; 97530 ==

== ENCOUNTER 2025-02-18 15:04 | Outpatient (RCR) | payer MEDICARE, SELFPAY | END 2025-02-18 23:59 | disposition home or self-care (01) | LOC: MPT 15:04 | PROVIDERS: Visit Provider Family Medicine | DX: M62.81 Muscle weakness (generalized) (principal); R26.81 Unsteadiness on feet | CPT/HCPCS: 97110; 97530 ==